=== PATIENT | female | born 2000 | race Caucasian/White ===

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

== ENCOUNTER 2022-01-10 12:21 | Emergency (ER) | payer OTHER, SELFPAY ==
[2022-01-10 12:39] VITALS: BP 108/63; PULSE 96; RESP 16; TEMP 37.3; O2SAT 99
--- NOTE | 2022-01-10 13:21 | ED.URI ---
HPI - URI/Sore Throat General Chief Complaint: Upper Respiratory Infection Stated Complaint: cough/fever Time Seen by Provider: 01/10/22 13:21 Source: patient and RN notes reviewed Mode of arrival: ambulatory Limitations: no limitations History of Present Illness HPI Narrative: 21 y/o female (14 weeks ) presented for c/o fever, headache, nausea for 2 days. Temp up to 102. Patient states she has been taking ibuprofen which was approved by obgyn. Denies cough, shortness of breath, wheezing. Occasional nausea vomiting but reports likely related to morning sickness. MD elicited complaint: cough Related Data Home Medications Medication Instructions Recorded Confirmed No Home Medications 01/10/22 01/10/22 Allergies Allergy/AdvReac Type Severity Reaction Status Date / Time No Known Allergies Allergy Verified 01/10/22 13:07 Review of Systems Review of Systems: ROS per HPI [facility] Past Medical History Medical History Patient denies medical problems Surgical History Surgical History No pertinent past surgical history Social History Social History Gender identity (if verbalized by the patient): Female Exam Narrative: GENERAL: Ill-appearing, nontoxic EYES: PERRLA, conjunctivae clear ENT: Mucous membranes moist. TMs pearly beverly with dull light reflex bilaterally; no tragal tenderness. Oropharynx erythematous without lesions or exudate, no drooling, no hoarseness, no trismus, uvula midline. CHEST: Clear to auscultation, breath sounds equal. No wheezing, rhonchi, rales, or stridor. No respiratory distress, speaks in full sentences. HEART: Regular rate and rhythm. SKIN: Warm, dry, no rash. NEURO: Alert and oriented x3. PSYCH: Normal mood and affect Course Course Emergency Course: Patient is aware of diagnosis, understands and agrees to treatment plan. Anticipatory guidance given. Patient agrees to follow-up as directed and is aware of reasons to seek care at the emergency department. Portions of this record may have been created with voice recognition software Level of Care: Express Care Visit Vital Signs Vital signs: Vital Signs Temperature 99.2 F 01/10/22 12:39 Pulse Rate 96 01/10/22 12:39 Respiratory Rate 16 01/10/22 12:39 Blood Pressure 108/63 01/10/22 12:39 Pulse Oximetry 99 01/10/22 12:39 Oxygen Delivery Room Air 01/10/22 12:39 Temperature 99.2 F 01/10/22 12:39 Pulse Rate 96 01/10/22 12:39 Respiratory Rate 16 01/10/22 12:39 Blood Pressure 108/63 01/10/22 12:39 Pulse Oximetry 99 01/10/22 12:39 Oxygen Delivery Room Air 01/10/22 12:39 reviewed MDM - URI/Sore Throat MDM Narrative Medical decision making narrative: Influenza positive. Results reviewed with patient. Advised supportive measures and signs/symptoms to go to the ER. Pt is appropriate for outpt treatment and f/u. Differential Diagnosis Differential diagnosis: Likely upper respiratory infection, sinusitis, viral infection and influenza Lab Data Labs: Influenza A Screen Positive Reference Range: Negative Influenza B Screen Negative Reference Range: Negative Discharge Plan Discharge Clinical Impression: Influenza Patient Disposition: Home, Self-Care Condition: Stable Instructions: Influenza (ED) Additional Instructions: Influenza positive You should avoid crowds until you are fever free for 24 hours without the use of fever reducing medications, or the symptoms are improved Rest. Drink plenty of fluids. Tylenol every 8 hours as needed for pain/fever Discuss other symptom treatment options with Obgyn. Follow up with your primary care provider as needed in 1-2 brenda
== END 2022-01-10 13:35 | disposition home or self-care (01) ==
PROVIDERS: Emergency Provider Nurse Practitioner Family
DX: J11.1 Influenza due to unidentified influenza virus with other respiratory manifestations (principal)
CPT/HCPCS: 87804; 99213; G0463

== ENCOUNTER 2022-03-17 11:54 | Outpatient (CLI) | payer OTHER, SELFPAY ==
--- NOTE | ~2022-03-17 | XR_ITS ---
Clinical Indication: Chest pain PA and lateral views of the chest: Comparison: None Findings: The lungs are clear, without evidence of focal consolidation or pleural effusion. Cardiome diastinal silhouette is within normal limits. Bones and soft tissues are unremarkable. Impression: Normal chest. Reviewed, dictated and finalized at location . [employer]IC SHOVEL OPERATOR Impression: Normal chest.
== END 2022-03-17 11:55 | disposition home or self-care (01) ==
LOC: ANHIMG 12:00
DX: R07.9 Chest pain, unspecified (principal)
CPT/HCPCS: 71046

== ENCOUNTER 2022-04-03 09:49 | Observation (INO) | payer OTHER, SELFPAY ==
[2022-04-03 09:41] VITALS: BP 120/75; PULSE 107; RESP 16; TEMP 36.7; O2SAT 100
--- NOTE | 2022-04-03 10:00 | PC.NURSE ---
Pt states she has had dizziness for past 2 weeks. States white spots and black spots in eyes past week and this morning became nauseated at work. States she knelt down to vomit an passed out States whens she woke she was sitting with head against wall. Unsure how long she was there. Denies pain denies falling abdomen that she is aware of and was not on abdomen when she woke up States mild right side headache frontal area. Rates as 6 states not intense enough for pain medication.
--- NOTE | 2022-04-03 11:00 | PC.NURSE ---
Dr. Stein in OR. Coming to dept after case. WIll report on pt. then.
--- NOTE | 2022-04-03 11:38 | PC.NURSE ---
Dr. Stein in dept. Report given. Orders received.
[2022-04-03 12:34] LABS: Bacteria Urine Trace /hpf; RBC Urine 0-2 /hpf (0-2); Squamous Epithelial Cell Urine Rare /hpf (Few); WBC Urine 0-3 /hpf
[2022-04-03 12:35] LABS: Appearance Urine Clear (Clear); Bilirubin Urine Negative (Negative); Blood Urine Negative (Negative); Color Urine Yellow (Yellow); Glucose Urine UA Negative (Negative); Ketones Urine Negative (Negative); Leukocyte Esterase Ur Trace LEU/UL (Negative); Nitrate Urine Negative (Negative); Protein Urine Negative (Negative); Urobilinogen Urine 0.2 mg/dL (<2.0)
[2022-04-03 13:41] LABS: Add Urine Microscopic? YES
--- NOTE | 2022-04-05 07:29 | PM.OBTRLD ---
OB - Triage/Final Diagnosis Visit Information Comments/Additional reasons for admission: I have assessed the risk for this patient, Jessica Denis Tinsley, and determined that she would benefit from observation care. Evaluation Laboratory results: Laboratory Tests 04/03/22 11:54 Urine Color Yellow Urine Appearance Clear Urine pH 7.0 Ur Specific [place] 1.010 Urine Protein Negative Urine Glucose (UA) Negative Urine Ketones Negative Ur Blood (Man) Negative Urine Nitrate Negative Urine Bilirubin Negative Urine Urobilinogen 0.2 Leukocyte Esterase Rfl Trace H Urine RBC 0-2 Urine WBC 0-3 Ur Squamous Epith Cells Rare Urine Bacteria Trace Final Diagnosis (1) Dizziness: Code(s): R42 - Dizziness and giddiness Status: Acute
== END 2022-04-03 12:51 | disposition home or self-care (01) ==
PROVIDERS: Admitting Provider Obstetrics & Gynecology; Visit Provider Obstetrics & Gynecology
DX: O26.899 Other specified pregnancy related conditions, unspecified trimester (principal); R42 Dizziness and giddiness; Z3A.25 25 weeks gestation of pregnancy
CPT/HCPCS: 81001; G0378; G0379

== ENCOUNTER 2022-04-04 13:35 | Emergency (ER) | payer OTHER, SELFPAY ==
[2022-04-04 13:56] VITALS: BP 106/71; PULSE 98; RESP 18; TEMP 36.6; O2SAT 100
[2022-04-04 16:31] VITALS: BP 110/76; PULSE 106; RESP 16; TEMP 36.9; O2SAT 100
[2022-04-04] MEDS: SODIUM CHLORIDE 0.9% IV 1,000 ML 999 ML IV CONT (17:24)
--- NOTE | 2022-04-04 18:22 | ED.HA ---
HPI - Headache General Chief Complaint: Headache Stated Complaint: headache, 26 weeks gestation Time Seen by Provider: 04/04/22 16:33 History of Present Illness HPI Narrative: Patient is a 21-year-old female who presents ER with headache. Patient reports she had a syncopal episode yesterday and was evaluated by OB. She said she struck her head on the wall when she fell. She has developed generalized throbbing headache that is like a band since yesterday. Yesterday she had right-sided throbbing headache. Reports mild photophobia. Reports she sees dots that will float across her vision at times. No blurred vision. No blood thinners. Was told to come here by her hatch supervisor for concussion check. Patient has taken ibuprofen for her pain. Related Data Home Medications Medication Instructions Recorded Confirmed [id number] 3-fat com #1 27 1 cap PO DAILY 04/04/22 04/04/22 mg-1 mg-300 mg capsule Allergies Allergy/AdvReac Type Severity Reaction Status Date / Time No Known Allergies Allergy Verified 04/04/22 16:37 Review of Systems Eyes: Eyes: Reports change in vision (Floaters) and Reports photophobia Gastrointestinal: Gastrointestinal: Denies abdominal pain, Denies nausea and Denies vomiting Genitourinary: Genitourinary: Denies abnormal vaginal bleeding and Denies pelvic pain Integumentary/Breasts: Skin/Breast: Denies erythema and Denies rash Neurologic: Reports syncope, Reports headache(s), Denies focal weakness and Denies numbness PMFSH Past Medical History Medical History Patient denies medical problems Surgical History Surgical History No pertinent past surgical history Social History Social History Gender identity (if verbalized by the patient): Female Exam Narrative: GENERAL: Well-appearing, well-nourished, and in no acute distress. HEAD: Normocephalic, atraumatic. EYES: PERRL and EOMI. intraocular pressure 12 mmHg in the right eye and unable to perform in the left eye due to patient not being able to tolerate the test due to blinking. Visual acuity is 20/20 with both eyes with correction. ENT: Mucous membranes moist. CHEST: Clear to auscultation. No respiratory distress. HEART: Regular rate and rhythm. Normal peripheral pulses. EXTREMITIES: Normal range of motion. No edema. NEURO: Alert and oriented x3. PSYCH: Normal mood and affect. Course Course Emergency Course: Patient resting comfortably. Has been hydrated. Received IV Tylenol. Headache improving. Normal visual acuities with correction. Recommend follow-up with her hatch supervisor. Also encourage patient to see an eye doctor for her floaters. Vital Signs Vital signs: Vital Signs Temperature 97.9 F 04/04/22 13:56 Pulse Rate 98 04/04/22 13:56 Respiratory Rate 18 04/04/22 13:56 Blood Pressure 106/71 04/04/22 13:56 Pulse Oximetry 100 04/04/22 13:56 Oxygen Delivery Room Air 04/04/22 13:56 Temperature 98.4 F 04/04/22 16:31 Pulse Rate 106 H 04/04/22 16:31 Respiratory Rate 16 04/04/22 16:31 Blood Pressure 110/76 04/04/22 16:31 Pulse Oximetry 100 04/04/22 16:31 Oxygen Delivery Room Air 04/04/22 16:31 Discharge Plan Discharge Clinical Impression: Concussion Patient Disposition: Home, Self-Care Condition: Stable Instructions: Concussion (ED) Additional Instructions: Return to the ER if you lose consciousness, you have a seizure, you have new focal numbness or weakness in arm or leg, you have additional concerns. Take Tylenol as needed for headache. Plan a dark room that is quiet to help with healing. Prescriptions: No Action Pre-Camille Multivitamins/Minerals 27-1-300 mg Capsule 1 cap PO DAILY Follow-up/Referrals: UNKNOWN,DOCTOR [Primary Care Provider] - Stand Alone Forms: Work/
[2022-04-04 18:54] VITALS: BP 103/68; PULSE 100; RESP 18; TEMP 36.8; O2SAT 100
== END 2022-04-04 18:54 | disposition home or self-care (01) ==
PROVIDERS: Emergency Provider Emergency Medicine
DX: O9A.212 Injury, poisoning and certain other consequences of external causes complicating pregnancy, second trimester (principal); S06.0XAA Concussion with loss of consciousness status unknown, initial encounter; Z3A.26 26 weeks gestation of pregnancy; W01.198A Fall on same level from slipping, tripping and stumbling with subsequent striking against other object, initial encounter
CPT/HCPCS: 96361; 96374; 99284; J0131; J7030

== ENCOUNTER 2022-04-27 16:03 | Outpatient (RCR) | payer OTHER, SELFPAY ==
[2022-04-27 16:49] LABS: Hematocrit 33.2 % (37.0-47.0); Hemoglobin 11.1 g/dL (12.0-15.0)
[2022-04-27 17:43] LABS: HIV 1/2 Ab P24 Ag Result Negative (Negative)
== END 2022-07-26 23:59 | disposition home or self-care (01) ==
LOC: ANHLAB 16:03
PROVIDERS: Visit Provider Advanced Practice Midwife
DX: Z11.4 Encounter for screening for human immunodeficiency virus [HIV] (principal); O36.0190 Maternal care for anti-D [Rh] antibodies, unspecified trimester, not applicable or unspecified; Z3A.00 Weeks of gestation of pregnancy not specified
CPT/HCPCS: 36415; 85014; 85018; 85461; 86703; 86850; 86900; 86901; G0432

== ENCOUNTER 2022-05-01 17:16 | Outpatient (RCR) | payer OTHER, SELFPAY ==
[2022-05-01 17:51] LABS: Hematocrit 33.2 % (37.0-47.0); Hemoglobin 10.9 g/dL (12.0-15.0)
[2022-05-01 18:40] LABS: HIV 1/2 Ab P24 Ag Result Negative (Negative)
[2022-05-02] MEDS: RHO(D) IMMUNE GLOBULIN 300 MCG/2 ML SYRINGE IM (12:51)
== END 2022-07-30 23:59 | disposition home or self-care (01) ==
LOC: ANHLAB 17:16
PROVIDERS: Visit Provider Advanced Practice Midwife
DX: Z11.4 Encounter for screening for human immunodeficiency virus [HIV] (principal); Z29.13 Encounter for prophylactic Rho(D) immune globulin; O36.0130 Maternal care for anti-D [Rh] antibodies, third trimester, not applicable or unspecified; Z3A.00 Weeks of gestation of pregnancy not specified
CPT/HCPCS: 36415; 85014; 85018; 85461; 86703; 86850; 86900; 86901; 90384; 96372; G0432; J2790

== ENCOUNTER 2022-06-15 13:16 | Outpatient (CLI) | payer OTHER, SELFPAY ==
--- NOTE | ~2022-06-15 | US_ITS ---
EXAMINATION: US venous doppler [facility] DATE: 06/15/2022 13:43 INDICATION: Left lower limb edema. TECHNIQUE: Grayscale ultrasound images without and with compression and Doppler ultrasound images of the left lower extremity veins were obtained. COMPARISON: None. FINDINGS: The visualized portions of left common femoral vein, profunda (deep) femoral vein, femoral vein, popl iteal vein, peroneal veins, posterior tibial veins, and greater saphenous vein outflow are patent. IMPRESSION: 1. No deep venous thrombosis. Reviewed, dictated and finalized at location A.
== END 2022-06-15 13:17 | disposition home or self-care (01) ==
LOC: ANHIMG 13:18
PROVIDERS: Visit Provider Advanced Practice Midwife
DX: R60.0 Localized edema (principal)
CPT/HCPCS: 93971

== ENCOUNTER 2022-06-29 14:02 | Observation (INO) | payer OTHER, SELFPAY ==
[2022-06-29] VITALS (7 sets, daily range): BP systolic 106–117; BP diastolic 66–83; PULSE 72–87; BMI 29.2
[2022-06-29] MEDS: ONDANSETRON INJ 4 MG/2 ML VIAL IV PUSH (14:59)
[2022-06-29] MEDS: DEXTROSE 5%/LACTATED RINGERS 1,000 ML 999 ML IV CONT (15:00)
[2022-06-29 15:01] LABS: Basophils Percent Auto 0.7 % (0.2-1.2); Eosinophils Percent Auto 0.7 % (0-4.4); Hematocrit 32.1 % (37.0-47.0); Hemoglobin 10.5 g/dL (12.0-15.0); Immature Granulocyte Absolute 0.04 K/mm3 (0.00-0.031); Immature Granulocyte Percent A 0.7 % (0-0.5); Lymphocytes Absolute Auto 1.41 K/mm3 (0.9-3.2); Mean Corpuscular HGB Conc 32.7 g/dl (32-36); Mean Corpuscular Hemoglobin 27.4 pg (26-34); Mean Corpuscular Volume 83.8 fl (80-100); Mean Platelet Volume 10.6 fl (7.4-10.4); Monocytes Absolute Auto 0.8 K/mm3 (0.1-0.6); Monocytes Percent Auto 12.2 % (2.6-8.5); Neutrophils Absolute Auto 3.9 K/mm3 (1.3-6.7); Neutrophils Percent Auto 62.7 % (45.5-73.1); Platelet Count Result 213 k/mm3 (150-375); Red Blood Count 3.83 M/mm3 (4.2-5.4); Red Cell Distribution Width 15.7 % (11.5-14.5); White Blood Count 6.1 K/mm3 (4.5-10.0)
[2022-06-29 15:11] LABS: Alanine Aminotransferase 19 U/L (6-35); Albumin Level 3.5 g/dL (3.7-5.6); Alkaline Phosphatase 108 U/L (45-116); Anion Gap 5 mmol/L (8-16); Aspartate Amino Transferase 25 U/L (14-36); Bilirubin,Total 0.3 mg/dL (0.2-1.3); Blood Urea Nitrogen 7 mg/dL (8-21); Calcium 8.6 mg/dL (8.9-10.7); Carbon Dioxide 23 mmol/L (22-30); Chloride 107 mmol/L (98-107); Estimated Glomerular Filt Rate > 60; Glucose 80 mg/dL (65-110); Potassium 3.9 mmol/L (3.4-5.0); Sodium 135 mmol/L (134-143)
--- NOTE | 2022-06-29 15:47 | LDADM ---
This patient, Jessica Tinsley, was admitted to Labor/Delivery/Recovery 106 on 06/29/22 at 14:02. Plans for labor, pain management and were discussed with patient. Patient/family oriented to hospital policies and general routines including ID bracelet, bed and alarms, visiting hours, pain management, procedures, bathroom and other care routines, personal items, smoking policy, room service/diet and guest tray routines, infant security routines, and visiting hours. Patient/Family are encouraged to report perceived risks to care and to ask questions if they do not understand what they are told or what they should do. See OBIX for further documentation.
[2022-06-29 15:56] LABS: Appearance Urine Clear (Clear); Bacteria Urine Rare /hpf; Bilirubin Urine Negative (Negative); Blood Urine Negative (Negative); Color Urine Yellow (Yellow); Glucose Urine UA Trace mg/dL (Negative); Ketones Urine Negative (Negative); Leukocyte Esterase Ur Trace LEU/UL (Negative); Nitrate Urine Negative (Negative); Non Pathogenic Casts 0-2; Protein Urine Negative (Negative); RBC Urine 0-2 /hpf (0-2); Specific Grav Ur 1.006 (1.001-1.035); Squamous Epithelial Cell Urine None seen /hpf (Few); Urobilinogen Urine 0.2 mg/dL (<2.0); WBC Urine 0-5 /hpf; pH Urine 6.5 (5.0-9.0)
[2022-06-29 15:57] LABS: Add Urine Microscopic? YES
--- NOTE | 2022-06-29 16:04 | PC.NURSE ---
Spoke with CNM on phone at [phone]. Discussed lab values. Patient is not laurie and is no longer complaining of nausea. Patient has not vomited during this admission. tracing has remained category I. Verbal orders for discharge given.
--- NOTE | 2022-06-30 12:04 | P.PNOB_ITS ---
OB - Triage/Final Diagnosis Visit Information Date of evaluation: 06/29/22 Reason for evaluation: other (nausea) Comments/Additional reasons for admission: I have assessed the risk for this patient, Jessica Denis Tinsley, and determined that she would benefit from observation care. Evaluation Laboratory results: Laboratory Tests 06/29/22 14:55 WBC 6.1 RBC 3.83 L Hgb 10.5 L Hct 32.1 L MCV 83.8 MCH 27.4 MCHC 32.7 RDW 15.7 H Plt Count 213 MPV 10.6 H Immature Gran % (Auto) 0.7 H Neut % (Auto) 62.7 Lymph % (Auto) 23.0 [place] % (Auto) 12.2 H Eos % (Auto) 0.7 Baso % (Auto) 0.7 Lymph # (Auto) 1.41 [place] # (Auto) 0.8 H Eos # (Auto) 0.0 Baso # (Auto) 0.0 Abs Immat Gran (auto) 0.04 H Absolute Neuts (auto) 3.9 Absolute Nucleated RBC 0.0 Nucleated RBC % 0.0 Sodium 135 Potassium 3.9 Chloride 107 Carbon Dioxide 23 Anion Gap 5 L BUN 7 L Creatinine 0.50 L Estim Creat Clear Calc Not Reportable Estimated GFR > 60 Glucose 80 Calcium 8.6 L Total Bilirubin 0.3 AST 25 ALT 19 Alkaline Phosphatase 108 Total Protein 7.0 Albumin 3.5 L Urine Color Yellow Urine Appearance Clear Urine pH 6.5 Ur Specific [place] 1.006 Urine Protein Negative Urine Glucose (UA) Trace H Urine Ketones Negative Ur Blood (Man) Negative Urine Nitrate Negative Urine Bilirubin Negative Urine Urobilinogen 0.2 Leukocyte Esterase Rfl Trace H Urine RBC 0-2 Urine WBC 0-5 Ur Squamous Epith Cells None seen Urine Bacteria Rare Urine Casts 0-2 Vital signs: Vital Signs - 24 hr 06/29/22 14:45 06/29/22 15:00 06/29/22 15:15 Pulse Rate 82 81 73 Blood Pressure 117/66 111/83 111/77 Oxygen Delivery 06/29/22 15:30 06/29/22 15:43 06/29/22 15:45 Pulse Rate 72 80 87 Blood Pressure 106/75 109/80 113/80 Oxygen Delivery 06/29/22 16:00 06/29/22 15:30 Pulse Rate 81 Blood Pressure 112/75 Oxygen Delivery Room Air
== END 2022-06-29 16:20 | disposition home or self-care (01) ==
PROVIDERS: Advanced Practice Midwife; Admitting Provider Obstetrics & Gynecology; Visit Provider Obstetrics & Gynecology
DX: O26.893 Other specified pregnancy related conditions, third trimester (principal); R11.0 Nausea; Z3A.38 38 weeks gestation of pregnancy
CPT/HCPCS: 36415; 80053; 81001; 85025; 96374; G0378; G0379; J2405; J7121

== ENCOUNTER 2022-07-13 16:38 | Inpatient (IN) | payer OTHER, SELFPAY ==
[2022-07-13] VITALS (13 sets, daily range): BP systolic 102–137; BP diastolic 58–99; PULSE 77–94; TEMP 36.3–36.4; BMI 31.1; BMI 30.9
[2022-07-13 17:45] LABS: Basophils Percent Auto 0.6 % (0.2-1.2); Eosinophils Absolute Auto 0.1 K/mm3 (0-0.3); Eosinophils Percent Auto 0.8 % (0-4.4); Hematocrit 31.6 % (37.0-47.0); Hemoglobin 10.5 g/dL (12.0-15.0); Immature Granulocyte Absolute 0.07 K/mm3 (0.00-0.031); Lymphocytes Absolute Auto 1.75 K/mm3 (0.9-3.2); Lymphocytes Percent Auto 24.4 % (18.3-44.2); Mean Corpuscular HGB Conc 33.2 g/dl (32-36); Mean Corpuscular Hemoglobin 27.8 pg (26-34); Mean Corpuscular Volume 83.6 fl (80-100); Mean Platelet Volume 11.7 fl (7.4-10.4); Monocytes Absolute Auto 0.8 K/mm3 (0.1-0.6); Monocytes Percent Auto 11.3 % (2.6-8.5); Neutrophils Absolute Auto 4.4 K/mm3 (1.3-6.7); Neutrophils Percent Auto 61.9 % (45.5-73.1); Platelet Count Result 185 k/mm3 (150-375); Red Blood Count 3.78 M/mm3 (4.2-5.4); Red Cell Distribution Width 15.6 % (11.5-14.5); White Blood Count 7.2 K/mm3 (4.5-10.0)
[2022-07-13 17:51] LABS: Appearance Urine Clear (Clear); Bacteria Urine 1+ /hpf; Bilirubin Urine Negative (Negative); Blood Urine Negative (Negative); Color Urine Yellow (Yellow); Glucose Urine UA Negative (Negative); Ketones Urine Negative (Negative); Leukocyte Esterase Ur Trace LEU/UL (Negative); Nitrate Urine Negative (Negative); Non Pathogenic Casts 0-2; Protein Urine 2+ mg/dL (Negative); RBC Urine 0-2 /hpf (0-2); Specific Grav Ur 1.015 (1.001-1.035); Squamous Epithelial Cell Urine Occasional /hpf (Few); WBC Urine 0-5 /hpf; pH Urine 6.5 (5.0-9.0)
[2022-07-13 17:56] LABS: Alanine Aminotransferase 15 U/L (6-35); Albumin Level 3.3 g/dL (3.7-5.6); Alkaline Phosphatase 128 U/L (45-116); Anion Gap 7 mmol/L (8-16); Aspartate Amino Transferase 26 U/L (14-36); Bilirubin,Total 0.2 mg/dL (0.2-1.3); Blood Urea Nitrogen 12 mg/dL (8-21); Calcium 8.2 mg/dL (8.9-10.7); Carbon Dioxide 21 mmol/L (22-30); Chloride 106 mmol/L (98-107); Estimated CRCL calculation 114 ml/min; Estimated Glomerular Filt Rate > 60; Glucose 98 mg/dL (65-110); Potassium 3.8 mmol/L (3.4-5.0); Sodium 134 mmol/L (134-143); Uric Acid 4.8 mg/dL (3.0-5.9)
[2022-07-13 17:58] LABS: Add Urine Microscopic? YES
[2022-07-13 18:02] LABS: Creatinine Urine 71.9 mg/dL; Total Protein Urine Random 117 mg/dL; Ur Ttl Prot Creatinine Ratio 1.63 mg/mg (0-0.20)
--- NOTE | 2022-07-13 19:05 | LDADM ---
This patient, Jessica Tinsley, was admitted to Labor/Delivery/Recovery 105 on 07/13/22 at 16:38. Plans for labor, pain management and were discussed with patient. Patient/family oriented to hospital policies and general routines including ID bracelet, bed and alarms, visiting hours, pain management, procedures, bathroom and other care routines, personal items, smoking policy, room service/diet and guest tray routines, infant security routines, and visiting hours. Patient/Family are encouraged to report perceived risks to care and to ask questions if they do not understand what they are told or what they should do. See OBIX for further documentation.
[2022-07-13] MEDS: miSOPROStol 25 MCG TABLET BY MOUTH ×2 (19:20→23:41)
[2022-07-14] VITALS (298 sets, daily range): BP systolic 104–220; BP diastolic 51–176; PULSE 53–124; RESP 16–17; TEMP 36.2–37.5; O2SAT 83–100
[2022-07-14] MEDS: LACTATED RINGERS 1,000 ML 999 ML IV CONT ×2 (02:18→09:38)
[2022-07-14] MEDS: ACETAMINOPHEN 500 MG TABLET 1000 MG PO ×2 (03:52→12:59)
[2022-07-14] MEDS: ONDANSETRON INJ 4 MG/2 ML VIAL IV PUSH (05:54)
--- NOTE | 2022-07-14 07:50 | WPDOBADMIT ---
Obstetrics - Admit Note Admission Note: record reviewed. No pertinent additions to the history and/or any subsequent changes in the physical findings that are not consistent with the expected course of the were found. IOL for elevated blood pressures with proteinuria, mild preeclampsia, sve 3/90/-2 AROM moderate amount of clear odorless fluid, anticipate vaginal delivery Additions to the history and/or subsequent changes in the physical findings follow. None.
--- NOTE | 2022-07-14 08:26 | WPDANESEPP ---
Anes - Eval Pre Procedure Procedure: labor epidural Date/Time: 07/14/22 08:26 Surgeon: randolph Preop Diagnosis: pain during labor Pre Op Diagnosis: IOL Patient Data Age: 21 Gender: F Height: 1.52 m Weight: 71.8 kg Last Vital Signs Temp 36.3 C L 07/13/22 23:44 Pulse 84 07/14/22 08:21 BP 135/90 07/14/22 08:21 Pulse Ox 99 07/14/22 05:48 O2 Del Method Room Air 07/13/22 18:57 Allergies Allergy/AdvReac Type Severity Reaction Status Date / Time No Known Allergies Allergy Verified 04/04/22 16:37 Home Medications Medication Instructions Recorded Confirmed Type [id number] 3-fat com #1 27 1 cap PO DAILY 04/04/22 07/13/22 History mg-1 mg-300 mg capsule famotidine 20 mg tablet 20 mg PO BID 06/12/22 07/13/22 History ferrous sulfate 325 mg (65 mg 325 mg PO DAILY 06/12/22 07/13/22 History iron) tablet acetaminophen 325 mg capsule 650 mg PO Q4H PRN Headache 07/13/22 07/13/22 History (Tylenol) levothyroxine 75 mcg tablet 75 mcg PO DAILY 07/13/22 07/13/22 History Laboratory Tests 07/13/22 07/13/22 17:18 19:16 WBC 7.2 K/mm3 (4.5-10.0) RBC 3.78 L M/mm3 (4.2-5.4) Hgb 10.5 L g/dL (12.0-15.0) Hct 31.6 L % (37.0-47.0) MCV 83.6 fl (80-100) MCH 27.8 pg (26-34) MCHC 33.2 g/dl (32-36) RDW 15.6 H % (11.5-14.5) Plt Count 185 k/mm3 (150-375) MPV 11.7 H fl (7.4-10.4) Immature Gran % (Auto) 1.0 H % (0-0.5) Neut % (Auto) 61.9 % (45.5-73.1) Lymph % (Auto) 24.4 % (18.3-44.2) Rich % (Auto) 11.3 H % (2.6-8.5) Eos % (Auto) 0.8 % (0-4.4) Baso % (Auto) 0.6 % (0.2-1.2) Lymph # (Auto) 1.75 K/mm3 (0.9-3.2) Rich # (Auto) 0.8 H K/mm3 (0.1-0.6) Eos # (Auto) 0.1 K/mm3 (0-0.3) Baso # (Auto) 0.0 K/mm3 (0.0-0.1) Abs Immat Gran (auto) 0.07 H K/mm3 (0.00-0.031) Absolute Neuts (auto) 4.4 K/mm3 (1.3-6.7) Absolute Nucleated RBC 0.0 K/mm3 (0.0-0.012) Nucleated RBC % 0.0 % (0.0-0.2) Sodium 134 mmol/L (134-143) Potassium 3.8 mmol/L (3.4-5.0) Chloride 106 mmol/L (98-107) Carbon Dioxide 21 L mmol/L (22-30) Anion Gap 7 L mmol/L (8-16) BUN 12 D mg/dL (8-21) Creatinine 0.60 L mg/dL (0.7-1.0) Estim Creat Clear Calc 114 ml/min Estimated GFR > 60 (59 - ) Glucose 98 mg/dL (65-110) Uric Acid 4.8 mg/dL (3.0-5.9) Calcium 8.2 L mg/dL (8.9-10.7) Total Bilirubin 0.2 mg/dL (0.2-1.3) AST 26 U/L (14-36) ALT 15 U/L (6-35) Alkaline Phosphatase 128 H U/L (45-116) Total Protein 6.0 L g/dL (6.3-8.6) Albumin 3.3 L g/dL (3.7-5.6) Urine Color Yellow (Yellow) Urine Appearance Clear (Clear) Urine pH 6.5 (5.0-9.0) Ur Specific [place] 1.015 (1.001-1.035) Urine Protein 2+ H mg/dL (Negative) Urine Glucose (UA) Negative mg/dL (Negative) Urine Ketones Negative mg/dL (Negative) Ur Blood (Man) Negative (Negative) Urine Nitrate Negative (Negative) Urine Bilirubin Negative (Negative) Urine Urobilinogen 1.0 mg/dL (<2.0) Leukocyte Esterase Rfl Trace H ALAINA/UL (Negative) Urine RBC 0-2 /hpf (0-2) Urine WBC 0-5 /hpf Ur Squamous Epith Cells Occasional /hpf (Few) Urine Bacteria 1+ H /hpf Urine Casts 0-2 U Random Total Protein 117 mg/dL Urine Creatinine 71.9 mg/dL Protein/Creat Ratio 2 1.63 H mg/mg (0-0.20) RPR Pending Blood Type O Negative Antibody Screen Negative Patient hx anesthesia problems: none Family hx anesthesia problems: none Results Review: All pre-operative results and documents have been reviewed as part of the pre-operative evaluation. [facility] Past Medical Hi
[2022-07-14] MEDS: OXYTOCIN 30 UNITS/NS 500 ML 30 UNITS/500 ML BAG 6 UNITS IV CONT (09:43)
[2022-07-14] MEDS: FAMOTIDINE 20 MG/2 ML VIAL IV PUSH (11:52)
[2022-07-14] MEDS: LABETALOL HCL INJ 100 MG/20 ML VIAL 20 MG IV PUSH (17:03)
[2022-07-14] MEDS: LACTATED RINGERS 1,000 ML 75 ML IV CONT (17:38)
[2022-07-14] MEDS: MAGNESIUM SULF 4 GM/WATER100ML 4 GM/100 ML BAG IVPB (19:12)
[2022-07-14] MEDS: OXYTOCIN 10 UNITS/ML VIAL 20 UNITS (19:21)
[2022-07-14] MEDS: miSOPROStol 200 MCG TABLET 800 MCG (19:24)
--- NOTE | 2022-07-14 19:29 | PM.OBPRVD ---
OB - Delivery Note Procedure Delivery date: 07/14/22 Procedure: vaginal delivery Events: Preeclampsia w/o severe features (during labor turned into severe with severe range blood pressures) Induction method: AROM and Per Misoprostol Protocol Delivery monitor: External FHT, External Uterine and Internal Uterine Route of delivery: Laceration Description: Perineal - 2nd Degree Delivery repair: vicryl Specimen: Yes Quantitative Blood Loss (ml): 600 Anesthesia type: Epidural Disposition: Floor Baby Date of : 07/14/22 Time of : 19:10 Weeks of gestation at delivery: 39 Infant gender: Male Weight (pounds): 8 Weight (ounces): 2 presentation: compound (right arm and hand) Placenta delivery description: Spontaneous Cord Vessel Description: 3 Vessels and Clamped/Cut Narrative: baby to nursery for evaluation, mother and baby stable
[2022-07-14] MEDS: MAGNESIUM SULF 20GM/WATER500ML 500 ML 50 MG IV CONT (19:42)
[2022-07-14] MEDS: BENZOCAINE 20% AER SPR (*SP) 56 GM CAN 1 SPRAY TOPICAL (22:02)
[2022-07-14] MEDS: LANOLIN (LANSINOH) 7.5 GM CREAM 1 APPLIC TOPICAL (22:02)
[2022-07-14] MEDS: WITCH HAZEL 40 PADS 1 PAD TOPICAL (22:02)
[2022-07-14] MEDS: IBUPROFEN 600 MG TABLET PO (22:02)
[2022-07-15] VITALS (13 sets, daily range): BP systolic 94–121; BP diastolic 52–78; PULSE 80–99; RESP 16–18; TEMP 36.2–36.8; O2SAT 98–100
[2022-07-15] MEDS: ACETAMINOPHEN 325 MG TABLET 650 MG PO ×2 (04:41→14:30)
[2022-07-15 04:55] LABS: Hematocrit 23.4 % (37.0-47.0); Hemoglobin 7.4 g/dL (12.0-15.0)
--- NOTE | 2022-07-15 06:24 | PM.OBPNVD ---
OB - PN: Subj Subjective Date/time seen: 07/15/22 06:24 s/p vaginal delivery day 1 baby doing well pain well managed denies headache, visual changes, epigastric pain , magnesium sulfate stopped at 12 hours urinary catheter in, I and O appropriate OB - PN: Obj Data Labs 07/15/22 04:42 07/13/22 17:18 Labs: Laboratory Results - last 24 hr 07/15/22 04:42 Hgb 7.4 L D Hct 23.4 L OB - PN A/P Plan day: 1 Plan: routine care Comments: s/p magnesium sulfate continue to monitor BP continue I and O anemia after delivery plan 2 units of blood pt being co-managed with dr. dickson Time Spent With Patient Time: Total time spent is greater than 50% in coordination of care (as documented) at patient's floor/unit and/or counseling patient: Review of Systems Review of Systems: All systems reviewed & are unremarkable except as noted in HPI and below Exam Const: General: cooperative, healthy appearing and comfortable Chest: Chest palpation & inspection: normal inspection of the chest Resp: Effort & Inspection: normal respiratory effort Auscultation: clear to auscultation bilaterally Cardio: Rate: regular rate Rhythm: regular rhythm GI: Inspection: normal to inspection : Other: deferred Skin: General skin exam: normal color Neuro: General: oriented to person, oriented to place, oriented to time and patient oriented x3 Extrem: Right lower extremity: normal to inspection Left lower extremity: normal to inspection Psych: Appearance: grossly normal
--- NOTE | 2022-07-15 08:36 | WPDANLDPN2 ---
Anes-Prog Note L&D Date/Time: 07/15/22 08:36 Comfortable throughout: labor and delivery Neuraxial method: epidural Epidural/Spinal procedure site: clean & non-tender Neuro status: Neuro function grossly intact. Cardiovascular status: normal Respiratory status: normal Airway patency: baseline Mental status: baseline Post-Op hydration status: normal Vital Signs: Last Vital Signs Temp 36.2 C L 07/15/22 06:35 Pulse 88 07/15/22 06:35 Resp 16 07/15/22 06:35 BP 109/55 L 07/15/22 06:35 Pulse Ox 99 07/15/22 06:35 O2 Del Method Room Air 07/13/22 18:57 Pain score (VAS): 2/10 I/O: Intake & Output 07/14/22 07/15/22 07/15/22 23:59 07:59 15:59 Intake Total 1100 Output Total 823 1300 Balance -823 -200 Post-procedural complaints: none Patient feedback: Patient satisfied with anesthetic care.
[2022-07-15] MEDS: DOCUSATE SODIUM 100 MG CAPSULE PO ×2 (09:12→17:36)
[2022-07-15] MEDS: SODIUM CHLORIDE 0.9% IV 250 ML 30 ML IV CONT (09:12)
[2022-07-15] MEDS: MULTIVIT/MIN/PREN/FOL AC/IRON TABLET 1 TAB PO (09:12)
[2022-07-15] MEDS: POLYSACCHARIDE IRON COMPLEX 150 MG CAPSULE PO ×2 (09:12→17:36)
[2022-07-15] MEDS: IBUPROFEN 600 MG TABLET PO (09:15)
--- NOTE | 2022-07-15 14:20 | PC.NURSE ---
RN advised Cashier Assistant, Salazar, that the patient has an order of protection against the father of her new born baby, both of which have attorneys and per patient she was advised by the attorneys to allow a visit at the hospital as long as there was a 3rd constitution party present. Per the Cashier Assistant, if the patient is comfortable with the visit and in agreement with her and his attorneys then the visit may occur but to let the patient know if she feels threatened at any time that we must call 911 for assistance.
[2022-07-15] MEDS: RHO(D) IMMUNE GLOBULIN 300 MCG/2 ML SYRINGE IM (19:15)
[2022-07-16] VITALS (7 sets, daily range): BP systolic 110–128; BP diastolic 66–88; PULSE 70–93; RESP 16; TEMP 36.3–36.7; O2SAT 99–100
[2022-07-16] MEDS: IBUPROFEN 600 MG TABLET PO ×2 (00:41→09:03)
--- NOTE | 2022-07-16 04:38 | PC.NURSE ---
07/16/2022 at 310 Patient viewed the discharge video Mother & Baby Care, The First Two Weeks . Patient was given the opportunity and encouraged to ask questions. Patient verbalized understanding of information shared and has been given the mother/baby guide for home reference.
[2022-07-16 05:36] LABS: Hematocrit 28.6 % (37.0-47.0); Hemoglobin 9.3 g/dL (12.0-15.0)
[2022-07-16] MEDS: MULTIVIT/MIN/PREN/FOL AC/IRON TABLET 1 TAB PO (09:03)
[2022-07-16] MEDS: DOCUSATE SODIUM 100 MG CAPSULE PO ×2 (09:03→16:49)
--- NOTE | 2022-07-16 09:42 | P.PNOB_ITS ---
OB - PN: Subj Subjective Date/time seen: 07/16/22 09:42 Patient comments: no complaints, pain well controlled, incisional pain, tolerating diet and flatus present OB - PN: Obj Data Labs 07/16/22 05:26 07/13/22 17:18 Labs: Laboratory Results - last 24 hr 07/15/22 07/16/22 04:42 05:26 Hgb 9.3 L Hct 28.6 L Blood Type O Negative Antibody Screen Negative Screen Negative Baby's Blood Type O pos Baby's ORLY Negative Doses of RhIg Required 1 Crossmatch See Detail OB - PN A/P Plan day: 1 Plan: routine care Comments: No problems, routine care , wanted discharge today, had blood and magnesium sulf ate for elevated blood pressures, will continue to observe. Time Spent With Patient Time: Total time spent is greater than 50% in coordination of care (as documented) at patient's floor/unit and/or counseling patient: Exam Const: General: comfortable, no acute distress and alert Resp: Effort & Inspection: normal respiratory effort Auscultation: no crackles, no rales and no rhonchi Cardio: Rate: regular rate Heart sounds: no click, no murmurs and no rubs GI: Inspection: non-distended GI Palp: No Tenderness to palpation present (GI) Auscultation: normal bowel sounds Other: Incision - CDI Extrem: General: normal to inspection, no pedal edema and no calf tenderness
[2022-07-16] MEDS: POLYSACCHARIDE IRON COMPLEX 150 MG CAPSULE PO ×2 (12:39→16:49)
--- NOTE | 2022-07-16 12:46 | PC.NURSE ---
Patient given Medela breast pump. Order sheet completed and facesheet printed and put in office.
--- NOTE | 2022-07-16 16:40 | PC.NURSE ---
Per patient, she would like to no longer put baby to the breast for feeding. She would like to use a breast pump and bottle feed baby pumped breast milk and formula. Pumping guidelines, including milk collection, milk storage and usage discussed.
[2022-07-16] MEDS: ACETAMINOPHEN 325 MG TABLET 650 MG PO (22:12)
[2022-07-17 05:15] VITALS: BP 100/70; PULSE 72; RESP 16; TEMP 36.5
[2022-07-17 07:07] VITALS: BP 121/84; PULSE 88; RESP 16; TEMP 36.7; O2SAT 100
[2022-07-17] MEDS: DOCUSATE SODIUM 100 MG CAPSULE PO (07:17)
[2022-07-17] MEDS: MULTIVIT/MIN/PREN/FOL AC/IRON TABLET 1 TAB PO (07:17)
--- NOTE | 2022-07-17 07:37 | PM.OBPNVD ---
OB - PN: Subj Subjective Date/time seen: 07/17/22 07:37 s/p vaginal delivery day 3 OB - PN: Obj Data Labs 07/16/22 05:26 07/13/22 17:18 OB - PN A/P Plan day: 3 Plan: routine care and discharge home Time Spent With Patient Time: Total time spent is greater than 50% in coordination of care (as documented) at patient's floor/unit and/or counseling patient: Review of Systems Review of Systems: All systems reviewed & are unremarkable except as noted in HPI and below Exam Const: General: cooperative Chest: Chest palpation & inspection: normal inspection of the chest Resp: Effort & Inspection: normal respiratory effort Cardio: Rate: regular rate Rhythm: regular rhythm Skin: General skin exam: normal color Extrem: Right lower extremity: normal to inspection Left lower extremity: normal to inspection Psych: Appearance: grossly normal
--- NOTE | 2022-07-17 07:41 | PM.OBDSVD ---
DS: Admitting Diagnosis Discharge Date 07/17/22 Admitting Diagnosis iol, preeclampsia DS: Discharge Diagnosis Discharge Diagnosis (1) Vaginal delivery: Code(s): O80 - Encounter for full-term uncomplicated delivery Status: Acute OB - DS: Summary OB Procedures : None OB Procedures Intrapartum: Spontaneous Vag Delivery OB Procedures: : None Time Spent with Patient Time attestation: Total time spent providing and/or coordinating discharge services: DS: Data Data Completed and Pending Pending studies at discharge: Pending at discharge 07/14/22 19:12 Surgical [PTH] Routine Discharge Plan Discharge Attending physician on discharge: Claudia Martino Discharging Clinician: Aida Kwok Patient Disposition: Home, Self-Care Activity: pelvic rest Diet: regular Patient Instructions: Antibiotic Form Stand Alone Forms: General Discharge Information Follow-up/Referrals: Claudia Martino MD [Physician] - 1 Week Discharge Medications: New ibuprofen 600 mg Tablet 600 mg PO Q6H PRN (Reason: Cramping) Qty: 30 0RF Continued levothyroxine 75 mcg tablet 75 mcg PO DAILY BLV-qbrh-EQ-omega 3-fat com #1 27-1-300 mg Capsule 1 cap PO DAILY ferrous sulfate 325 mg (65 mg iron) Tablet 325 mg PO DAILY Discontinued acetaminophen [Tylenol] 325 mg Capsule 650 mg PO Q4H PRN (Reason: Headache) famotidine 20 mg Tablet 20 mg PO BID Date of admission: 07/13/22 16:38 Primary Care Provider: Marielena Dennison Admitting Provider: Claudia Martino Attending physician on admission: Aida Kwok Condition: Stable
[2022-07-17] MEDS: POLYSACCHARIDE IRON COMPLEX 150 MG CAPSULE PO (11:14)
[2022-07-17 13:14] LABS: Rapid Plasma Reagin Non-Reactive (NonReactive)
[2022-07-18 11:16] VITALS: BP 121/84; PULSE 80; RESP 18; TEMP 36.6; O2SAT 100
== END 2022-07-17 11:35 | disposition home or self-care (01) | DRG 807 ==
LOC: ANHOBOP 16:44 → ANHOBPP 16:44 → ANHOBOP 18:46 → ANHLDR 18:53 → ANHOB2 07-17 07:40 → ANHLDR 07-18 10:20 → ANHOB2 07-18 10:20
PROVIDERS: Advanced Practice Midwife; Admitting Provider Obstetrics & Gynecology; Visit Provider Obstetrics & Gynecology
DX: O13.4 Gestational [pregnancy-induced] hypertension without significant proteinuria, complicating childbirth (principal); Z37.0 Single live birth; O32.6XX0 Maternal care for compound presentation, not applicable or unspecified; O70.1 Second degree perineal laceration during delivery; O14.14 Severe pre-eclampsia complicating childbirth; O99.02 Anemia complicating childbirth; O77.0 Labor and delivery complicated by meconium in amniotic fluid; Z3A.39 39 weeks gestation of pregnancy
CPT/HCPCS: 36415; 36430; 80053; 81001; 82570; 84156; 84550; 85014; 85018; 85025; 85461; 86592; 86850; 86900; 86901; 86923; 88307; 90384; A9270; J2405; J2590; J2790; J2795; J3475; J7050; J7120; P9016

== ENCOUNTER 2022-08-09 12:55 | Emergency (ER) | payer OTHER, SELFPAY ==
[2022-08-09] VITALS (8 sets, daily range): BP systolic 107–121; BP diastolic 76–88; PULSE 80–95; RESP 12–18; TEMP 36.3; O2SAT 98–100
--- NOTE | ~2022-08-09 | US_ITS ---
EXAMINATION: US pelvic complete DATE: 08/09/2022 14:36 INDICATION: Bleeding 23 days TECHNIQUE: Multiple transabdominal and endovaginal sonographic images of the pelvis were obtained. COMPARISON: None. FINDINGS: The uterus measures 8.6 x 5.3 cm. The endometrial complex measures 12 mm. The right ovary m easures 3.9 x 2.2 cm. The left ovary measures 3.6 x 2.5 cm. There is normal vascular flow in the ovar ies. There is no free fluid in the pelvis. IMPRESSION: 1. No sonographic correlate for the patient's symptoms. Reviewed, dictated and finalized at location []
--- NOTE | 2022-08-09 13:15 | ED.HA ---
HPI - Headache General Chief Complaint: Headache Stated Complaint: headache Time Seen by Provider: 08/09/22 13:03 History of Present Illness HPI Narrative: Patient is a 21-year-old female who is 23 days here for evaluation of headache times several days. Patient states it is described as a tension sensation across her frontal forehead. She was taking ibuprofen with good relief of her symptoms. Patient started to have some vaginal bleeding today with golf ball sized blood clots. She denies any abdominal pain. Related Data Home Medications Medication Instructions Recorded Confirmed RJG-mysy-VT-omega 3-fat com #1 27 1 cap PO DAILY 04/04/22 07/13/22 mg-1 mg-300 mg capsule ferrous sulfate 325 mg (65 mg 325 mg PO DAILY 06/12/22 07/13/22 iron) tablet levothyroxine 75 mcg tablet 75 mcg PO DAILY 07/13/22 07/13/22 Allergies Allergy/AdvReac Type Severity Reaction Status Date / Time No Known Allergies Allergy Verified 04/04/22 16:37 Review of Systems Review of Systems: Gen: Denies fevers or chills Eyes: Denies eye pain or visual change ENT: Denies congestion Respiratory: Denies shortness of breath or cough CV: Denies chest pain or palpitations GI: Denies abdominal pain nausea, emesis or diarrhea : Reports vaginal bleeding. Denies burning, urgency, frequency or hematuria Musculoskeletal: Denies back pain or muscle pain Neuro: Reports headache. Denies numbness, tingling, weakness or focal weakness Skin: Denies rash Except as documented, all other systems reviewed and negative [facility] Past Medical History Medical History Patient denies medical problems Surgical History Surgical History No pertinent past surgical history Family History Family History Other Patient denies significant medical history Social History Social History Smoking status: Never smoker Substance use: never Lack of Transportation: No Lack of Food: Never True Current Housing: I Do Not Have Housing Concerned About Future Housing: No Difficulty Paying Gas/Electric Bills: No Difficulty Paying for Meds: No Currently Unemployed: No Education: High School Diploma/GED Difficulty w/ Childcare or Family Care: No Gender identity (if verbalized by the patient): Female Spiritual care concerns: No Exam Narrative: APPEARANCE: Well appearing, no pain in distress, well-nourished. Head: Normocephalic and atraumatic. EYES: PERRLA/EOMI, conjunctivae clear NOSE: No nasal drainage EARS: External ear normal in appearance THROAT: Oropharynx is clear. Mucous membranes are moist. NECK: Supple. No adenopathy, no masses. RESPIRATORY: Airway patent, respirations nonlabored. Clear to auscultation bilaterally, no rales, rhonchi, wheezing. CARDIOVASCULAR: Regular rate and rhythm without murmurs, rubs, or gallops. : Several small blood clots cleared from the vaginal vault, there is a medium amount of blood and mucus at the cervical os, cleared after use of 2 hernández swabs ABDOMINAL: Normoactive bowel sounds. Soft, nontender, nondistended. No rebound tenderness or guarding. MUSCULOSKELETAL: Extremities are warm and well-perfused. Moves all extremities well. No edema. NEURO: Normal speech. No focal neurologic deficits. SKIN: Skin is warm and dry. No rashes. PSYCHIATRIC: Normal affect/mood.. Course Vital Signs Vital signs: Vital Signs Temperature 97.4 F L 08/09/22 12:57 Pulse Rate 89 08/09/22 12:57 Respiratory Rate 17 08/09/22 12:57 Blood Pressure 121/80 08/09/22 12:57 Pulse Oximetry 99 08/09/22 12:57 Oxygen Delivery Room Air 08/09/22 12:57 Temperature 97.4 F L 08/09/22 12:57 Pulse Rate 88 08/09/22 15:24 Respiratory Rate 16 08/09/22 15:2
[2022-08-09 14:05] LABS: Basophils Absolute Auto 0.1 K/mm3 (0.0-0.1); Basophils Percent Auto 0.8 % (0.2-1.2); Eosinophils Absolute Auto 0.3 K/mm3 (0-0.3); Eosinophils Percent Auto 4.7 % (0-4.4); Hemoglobin 11.8 g/dL (12.0-15.0); Immature Granulocyte Absolute 0.07 K/mm3 (0.00-0.031); Immature Granulocyte Percent A 1.1 % (0-0.5); Lymphocytes Absolute Auto 2.18 K/mm3 (0.9-3.2); Mean Corpuscular HGB Conc 32.8 g/dl (32-36); Mean Corpuscular Hemoglobin 27.7 pg (26-34); Mean Corpuscular Volume 84.5 fl (80-100); Mean Platelet Volume 10.2 fl (7.4-10.4); Monocytes Absolute Auto 0.7 K/mm3 (0.1-0.6); Monocytes Percent Auto 10.5 % (2.6-8.5); Neutrophils Percent Auto 47.9 % (45.5-73.1); Platelet Count Result 285 k/mm3 (150-375); Red Blood Count 4.26 M/mm3 (4.2-5.4); White Blood Count 6.2 K/mm3 (4.5-10.0)
[2022-08-09 14:12] LABS: Appearance Urine Cloudy (Clear); Bacteria Urine None Seen /hpf; Bilirubin Urine Negative (Negative); Blood Urine 3+ (Negative); Color Urine Yellow (Yellow); Glucose Urine UA Negative (Negative); Ketones Urine Negative (Negative); Leukocyte Esterase Ur Trace LEU/UL (Negative); Nitrate Urine Negative (Negative); Non Pathogenic Casts 0-2; Protein Urine Negative (Negative); RBC Urine 0-2 /hpf (0-2); Specific Grav Ur 1.005 (1.001-1.035); Squamous Epithelial Cell Urine Occasional /hpf (Few); Urobilinogen Urine 0.2 mg/dL (<2.0); WBC Urine 0-5 /hpf
[2022-08-09 14:14] LABS: Add Urine Microscopic? YES
[2022-08-09 14:23] LABS: Alanine Aminotransferase 21 U/L (6-35); Albumin Level 4.1 g/dL (3.7-5.6); Alkaline Phosphatase 83 U/L (45-116); Anion Gap 7 mmol/L (8-16); Aspartate Amino Transferase 25 U/L (14-36); Bilirubin,Total 0.3 mg/dL (0.2-1.3); Blood Urea Nitrogen 7 mg/dL (8-21); Carbon Dioxide 25 mmol/L (22-30); Chloride 106 mmol/L (98-107); Estimated Glomerular Filt Rate > 60; Glucose 94 mg/dL (65-110); Magnesium 1.8 mg/dL (1.6-2.3); Potassium 3.9 mmol/L (3.4-5.0); Sodium 138 mmol/L (134-143)
[2022-08-09] MEDS: ACETAMINOPHEN 325 MG TABLET 650 MG PO (14:33)
[2022-08-09 14:34] LABS: Beta HCG Quantitative < 2.39 mIU/ML
== END 2022-08-09 15:20 | disposition home or self-care (01) ==
PROVIDERS: Emergency Provider Physician Assistant; PCP Family Medicine
DX: O99.355 Diseases of the nervous system complicating the puerperium (principal); G44.209 Tension-type headache, unspecified, not intractable
CPT/HCPCS: 36415; 76856; 80053; 81001; 81025; 83735; 84702; 85025; 86850; 86880; 86900; 86901; 86902; 99284; A9270

== ENCOUNTER 2022-12-06 16:07 | Emergency (ER) | payer OTHER, SELFPAY ==
[2022-12-06 16:19] VITALS: BP 117/71; PULSE 86; RESP 16; TEMP 36.9; O2SAT 99
--- NOTE | 2022-12-06 16:57 | ED.HA ---
HPI - Headache General Chief Complaint: Headache Stated Complaint: Headache Time Seen by Provider: 12/06/22 16:15 Source: patient Mode of arrival: ambulatory Limitations: no limitations History of Present Illness HPI Narrative: Patient is a 22-year-old female who presents with migraine that will go away. Patient has tried kane-jpf-ruhwonf medication that normally works along with prescription Topamax and taking a nap. Patient called PCP and was told to increase Topamax dose tomorrow. Patient is currently so she is limited on what she can take. Also reports nausea but has not vomited. Denies any changes in vision, unilateral numbness, tingling or weakness. Patient has a neurologist appointment in 1 week. Related Data Home Medications Medication Instructions Recorded Confirmed topiramate 25 mg tablet 25 mg PO DAILY 12/06/22 12/06/22 Allergies Allergy/AdvReac Type Severity Reaction Status Date / Time No Known Allergies Allergy Verified 12/06/22 16:16 Review of Systems Review of Systems: All systems reviewed & are unremarkable except as noted in HPI and below Constitutional: Constitutional: Denies body ache(s), Denies chills, Denies fatigue, Denies fever(s), Reports headache(s), Denies malaise and Denies weakness Eyes: Eyes: Denies blurry vision, Denies irritation and Denies loss of vision ENT: Denies otalgia, Reports headache(s), Denies nasal discharge, Denies sinus pain and Denies sore throat Cardiovascular: Cardiovascular: Denies chest pain, Denies irregular heart rhythm and Denies dyspnea Respiratory: Respiratory: Denies dyspnea Gastrointestinal: Gastrointestinal: Denies abdominal pain, Denies melena, Denies hematochezia, Denies diarrhea, Reports nausea and Denies vomiting Musculoskeletal: Musculoskeletal: Denies back pain, Denies myalgias and Denies arthralgias Integumentary/Breasts: Skin/Breast: Denies pruritus and Denies rash Neurologic: Reports headache(s), Denies loss of vision and Denies weakness Psychiatric: Psychiatric: Reports no additional psychiatric complaints Endocrine: Endocrine: Denies fatigue PMFSH Past Medical History Medical History Patient denies medical problems Surgical History Surgical History No pertinent past surgical history Family History Family History Other Patient denies significant medical history Social History Social History Smoking status: Never smoker Substance use: never Lack of Transportation: No Lack of Food: Never True Current Housing: I Do Not Have Housing Concerned About Future Housing: No Difficulty Paying Gas/Electric Bills: No Difficulty Paying for Meds: No Currently Unemployed: No Education: High School Diploma/GED Difficulty w/ Childcare or Family Care: No Gender identity (if verbalized by the patient): Female Spiritual care concerns: No Comments At time of signature, agree with nursing past medical, surgical, social and family history. There is no relevant family history pertinent to the presenting complaint. Exam Const: General: cooperative, healthy appearing, comfortable, no acute distress and well nourished Nutritional Appearance: well nourished Orientation/consciousness: patient oriented x3 Limitations: no limitations HENMT: Head: normal to inspection, normocephalic and atraumatic Ears: hearing grossly normal bilaterally and external ears normal Face/Nose/Sinus: Normal external nose present, normal facial exam and face symmetric Face and sinus: normal facial exam and face symmetric Mouth: Yes lip normal Eyes: General: appearance normal, both eyes and all related structures Alignment and Position: alignment normal and position normal Periorbital: periorbital findings chencho
== END 2022-12-06 17:17 | disposition home or self-care (01) ==
PROVIDERS: Emergency Provider Nurse Practitioner Family
DX: G43.909 Migraine, unspecified, not intractable, without status migrainosus (principal); Z86.16 Personal history of COVID-19
CPT/HCPCS: 99213; G0463

== ENCOUNTER 2023-01-31 08:59 | Emergency (ER) | payer OTHER, SELFPAY ==
--- NOTE | 2023-01-31 09:01 | ED.URI ---
HPI - URI/Sore Throat General Chief Complaint: Upper Respiratory Infection Stated Complaint: throat pain,ear pain Time Seen by Provider: 01/31/23 09:00 Source: patient Mode of arrival: ambulatory Limitations: no limitations History of Present Illness HPI Narrative: Jessica is a 22-year-old female patient presenting to the clinic today with complaints of sore throat, cough, runny nose, and left ear pain. She reports symptoms have been going on since of last week. She denies any known fever or chills. States she has been exposed to RSV, croup, and influenza. MD elicited complaint: cough, sore throat, nasal congestion and other (Left ear pain) Related Data Allergies Allergy/AdvReac Type Severity Reaction Status Date / Time No Known Allergies Allergy Verified 01/31/23 09:11 Review of Systems Review of Systems: Pertinent positives per HPI. Patient denies any fever, chills, rash, headache, visual changes, dizziness, shortness of breath, chest pain, palpitations, nausea, vomiting, diarrhea, constipation, abdominal pain, or any urinary issues. PMFSH Past Medical History Medical History Patient denies medical problems Surgical History Surgical History No pertinent past surgical history Family History Family History Other Patient denies significant medical history Social History Social History Smoking status: Never smoker Substance use: never Lack of Transportation: No Lack of Food: Never True Current Housing: I Do Not Have Housing Concerned About Future Housing: No Difficulty Paying Gas/Electric Bills: No Difficulty Paying for Meds: No Currently Unemployed: No Education: High School Diploma/GED Difficulty w/ Childcare or Family Care: No Gender identity (if verbalized by the patient): Female Spiritual care concerns: No Comments At the time of my signature, I reviewed and agree with the nursing past medical, surgical, social, and family history. There is no relevant family history pertinent to the patient complaint. Exam Narrative: General: Well-developed, well nourished, in no apparent distress Head: Normocephalic, atraumatic Eyes: Pupils equally round and reactive to light bilaterally, EOM intact, sclera and conjunctive clear, no discharge, lids normal Ears: TMs intact and clear, right ear canal clear, left ear canal impacted with cerumen, lighted curette was used to removal cerumen successfully, no drainage, grossly hearing normal. Nose: Nares patent, clear nasal discharge, no inflammation, no sinus tenderness. Mouth: Oral pharynx red without lesions or masses, good dentition, MMM. Neck: Supple, trachea midline, no enlargement of anterior or posterior cervical nodes, no thyroid masses or goiter palpable. Cardio: Regular rate and rhythm, s1 and s2 normal, no murmur appreciated. Resp: Clear to auscultation bilaterally, no rhonchi, rales, wheezing or rubs Course Course Emergency Course: Portions of this record may have been created with voice recognition software. Level of Care: Express Care Visit Vital Signs Vital signs: Vital signs reviewed Procedures Ear Wax Removal Left Ear: Ear Wax Removal Date: 01/31/23 Ear Wax Removal Time: 09:18 Results: Re-examined: cerumen removed completely TM Examination: TM(s) intact, normal appearance Ear Canal Exam: atraumatic Patient Tolerated Procedure: well and no complications Complications: no problems Technique: ear canal curetted Additional Comments: Verbal consent obtained for ear irrigation. Risk and benefits explained and patient voiced understanding. Lighted ear curette was used to remove cerumen from the left external canal. Cer
[2023-01-31 09:10] VITALS: BP 117/75; PULSE 99; RESP 16; TEMP 36.8; O2SAT 99
== END 2023-01-31 09:35 | disposition home or self-care (01) ==
PROVIDERS: Emergency Provider Nurse Practitioner Family
DX: J02.9 Acute pharyngitis, unspecified (principal); H61.22 Impacted cerumen, left ear; J06.9 Acute upper respiratory infection, unspecified; B34.9 Viral infection, unspecified
CPT/HCPCS: 69210; 87081; 87880; 99213; G0463

== ENCOUNTER 2023-04-17 18:10 | Emergency (ER) | payer OTHER, SELFPAY ==
--- NOTE | ~2023-04-17 | CT_ITS ---
EXAMINATION: CT brain wo con DATE: 04/17/2023 22:21 INDICATION: headache, syncope . TECHNIQUE: Computed tomography (CT) of the head was performed without intravenous contrast. The mA wa s adjusted according to patient size. Iterative reconstruction technique was employed. The dose-lengt h product was 529.67 mGy-cm. COMPARISON: None. FINDINGS: No acute intracranial hemorrhage or extra-axial fluid collection. No hydrocephalus, mass, or herniation. No acute ischemic infarct. Unremarkable dural venous sinus attenuation. No acute osseous abnormality. The aerated spaces are clear. IMPRESSION: No acute intracranial process. Reviewed, dictated and finalized at location K. O BOARD OPERATOR ANNOUNCER
--- NOTE | ~2023-04-17 | CT_ITS ---
EXAMINATION: CTA chest PE protocol DATE: 04/17/2023 22:27 INDICATION: chest pain, syncope TECHNIQUE: Computed tomography angiography (CTA) of the chest was performed with 100 mL Omnipaque-350 intravenous contrast timed to evaluate the pulmonary arteries. Coronal maximum intensity projection 3D-reconstructions were created by the technologist. The dose-length product (DLP) was 171.05 mGy-cm. Automated exposure control and iterative reconstruction technique were employed. COMPARISON: None. FINDINGS: Lung parenchyma and airways: Clear. Pleura: Unremarkable. Thoracic inlet, axillae and chest wall: Unremarkable. Thoracic aorta: No significant dilation. No dissection. Mediastinum: Normal. Heart and pericardium: Normal. Coronary artery calcifications: Absent. Upper abdomen: No significant finding. Bones: No acute osseous finding. Pulmonary arteries: Study quality: Adequate. No pulmonary emboli detected. IMPRESSION: No CT evidence of acute pulmonary embolus. No acute process detected in the chest. Reviewed, dictated and finalized at location K. K PITCHER
[2023-04-17 18:13] VITALS: BP 140/94; PULSE 87; RESP 20; TEMP 36.1; O2SAT 99
--- NOTE | 2023-04-17 18:16 | ECG_ITS ---
Measurements Intervals [place] Rate: 73 P: 51 SD: 177 QRS: 42 QRSD: 89 T: 59 QT: 382 QTc: 421 Interpretive Statements SINUS RHYTHM T WAVE ABNORMALITY IN ANTERIOR LEADS- CONSIDER ISCHEMIA BASELINE ARTIFACT- I, II, AVR, AVL ABNORMAL ECG NO PREVIOUS ECG AVAILABLE FOR COMPARISON Electronically Signed On 04-17-2023 19:46:49 CARDIAC SURGEON by Aashish Washington D.O.
[2023-04-17 21:11] LABS: Basophils Absolute Auto 0.1 K/mm3 (0.0-0.1); Basophils Percent Auto 0.5 % (0.2-1.2); Eosinophils Absolute Auto 0.2 K/mm3 (0-0.3); Eosinophils Percent Auto 1.4 % (0-4.4); Hematocrit 42.3 % (37.0-47.0); Hemoglobin 14.2 g/dL (12.0-15.0); Immature Granulocyte Absolute 0.03 K/mm3 (0.00-0.031); Immature Granulocyte Percent A 0.3 % (0-0.5); Lymphocytes Absolute Auto 3.22 K/mm3 (0.9-3.2); Lymphocytes Percent Auto 29.1 % (18.3-44.2); Mean Corpuscular HGB Conc 33.6 g/dl (32-36); Mean Corpuscular Hemoglobin 28.2 pg (26-34); Mean Corpuscular Volume 84.1 fl (80-100); Mean Platelet Volume 10.4 fl (7.4-10.4); Monocytes Absolute Auto 0.8 K/mm3 (0.1-0.6); Monocytes Percent Auto 6.9 % (2.6-8.5); Neutrophils Absolute Auto 6.8 K/mm3 (1.3-6.7); Neutrophils Percent Auto 61.8 % (45.5-73.1); Platelet Count Result 335 k/mm3 (150-375); Red Blood Count 5.03 M/mm3 (4.2-5.4); White Blood Count 11.1 K/mm3 (4.5-10.0)
[2023-04-17 21:17] LABS: Alanine Aminotransferase 14 U/L (6-35); Albumin Level 4.8 g/dL (3.5-5.1); Alkaline Phosphatase 80 U/L (38-126); Anion Gap 10 mmol/L (8-16); Aspartate Amino Transferase 24 U/L (14-36); Bilirubin,Total 0.7 mg/dL (0.2-1.3); Blood Urea Nitrogen 9 mg/dL (7-17); Calcium 9.3 mg/dL (8.4-10.2); Carbon Dioxide 24 mmol/L (22-30); Chloride 104 mmol/L (98-107); Estimated CRCL calculation 114 ml/min; Estimated Glomerular Filt Rate > 60; Glucose 91 mg/dL (65-110); Potassium 3.7 mmol/L (3.4-5.0); Sodium 138 mmol/L (137-145)
--- NOTE | 2023-04-17 21:55 | ED.SYNCOPE ---
HPI - Syncope General Chief Complaint: Syncope <Bailey Espinoza PA-C - Last Filed: 04/18/23 03:28> Stated Complaint: lightheaded, syncope <ABEL Palacios Last Filed: 04/18/23 03:28> Time Seen by Provider: 04/17/23 21:38 <Bailey Espinoza PA-C - Last Filed: 04/18/23 03:28> History of Present Illness HPI narrative: 22-year-old female presents to the emergency department for 2 syncopal episode that occurred today. Patient states she was at work in around 515, she was sitting at her desk watching a show on her phone. States she was filling out paperwork simultaneously when she woke up with her head on her desk and her show was approximately 3 minutes head. States prior to losing consciousness she felt lightheaded, had tunnel vision and felt nauseous. States around 5:45 p.m., she walked to the RN at her job to get her vitals taken. States she had a blood pressure checked which was 73/42, she then lost consciousness again in front of the nurse. States she had the same prodromal symptoms. When she came to a few minutes later, her blood pressure was 184/103. She denies bowel or bladder incontinence, postictal phase, history of seizures. Patient reports she has had a frontal headache throughout the day. States she normally gets headaches and this is unchanged from her baseline. Patient states while on her way to the emergency department she began developing chest pain in her left anterolateral chest wall beneath her breast. She denies cough, congestion, melena hematochezia, vomiting or diarrhea, abdominal pain, radiating chest pain. States her chest pain is worse with movement. Denies history VTE, lower extremity edema, shortness of breath, fever. LMP 03/21/23. <Bailey Espinoza PA-C - Last Filed: 04/18/23 03:28> Related Data Allergies/Adverse Reactions: Allergies Allergy/AdvReac Type Severity Reaction Status Date / Time No Known Allergies Allergy Verified 01/31/23 09:11 <ABEL Palacios Last Filed: 04/18/23 03:28> Review of Systems Review of Systems: CONSTITUTIONAL: Denies fever, chills, or sweats. EYES: Denies visual changes, redness, or discharge. ENT: Denies rhinorrhea, congestion, sore throat, or otalgia. CARDIOVASCULAR: See HPI RESPIRATORY: Denies cough or dyspnea GASTROINTESTINAL: Denies abdominal pain, nausea, vomiting, or diarrhea. GENITOURINARY: Denies dysuria or hematuria. SKIN: Denies rash or itching. MUSCULOSKELETAL: Denies back pain, joint pain, or myalgia. NEUROLOGIC: See HPI PSYCHIATRIC: Denies anxiety or depression. <Bailey Espinoza PA-C - Last Filed: 04/18/23 03:28> [facility] Past Medical History Medical History: Medical History Patient denies medical problems <Bailey Espinoza PA-C - Last Filed: 04/18/23 03:28> Surgical History Surgical History: Surgical History No pertinent past surgical history <Bailey Espinoza PA-C - Last Filed: 04/18/23 03:28> Family History Family History: Family History Other Patient denies significant medical history <Bailey Espinoza PA-C - Last Filed: 04/18/23 03:28> Social History Social History: Social History Smoking status: Never smoker Substance use: never Lack of Transportation: No Lack of Food: Never True Current Housing: I Do Not Have Housing Concerned About Future Housing: No Difficulty Paying Gas/Electric Bills: No Difficulty Paying for Meds: No Currently Unemployed: No Education: High School Diploma/GED Difficulty w/ Childcare or Family Care: No Gender identity (if verbalized by the patient): Female Spiritual care concerns: No <Bailey Espinoza PA-C - Last Filed: 04/18/23 03:28> Exam Narrative: GENERAL: W
[2023-04-17] MEDS: SODIUM CHLORIDE 0.9% IV 1,000 ML 999 ML IV CONT (22:11)
[2023-04-17 22:31] LABS: Prothrombin Time 13.9 Seconds (11.1-14.7)
[2023-04-17 22:32] LABS: Partial Thromboplastin Time 31.2 SECONDS (22.3-36.8)
[2023-04-17 23:01] LABS: Appearance Urine Clear (Clear); Bacteria Urine None Seen /hpf; Bilirubin Urine Negative (Negative); Blood Urine Negative (Negative); Color Urine Yellow (Yellow); Glucose Urine UA Negative (Negative); Ketones Urine 1+ mg/dL (Negative); Leukocyte Esterase Ur 1+ LEU/UL (Negative); Need Manual Microscopic Reviewed; Nitrate Urine Negative (Negative); Non Pathogenic Casts 0-2; Protein Urine Negative (Negative); RBC Urine 0-2 /hpf (0-2); Specific Grav Ur 1.006 (1.001-1.035); Squamous Epithelial Cell Urine Few /hpf (Few); Urobilinogen Urine 0.2 mg/dL (<2.0); WBC Urine 0-5 /hpf; pH Urine 7.5 (5.0-9.0)
[2023-04-17 23:02] LABS: Add Urine Microscopic? YES
[2023-04-17 23:07] LABS: NT Pro B Type Natriuretic Pept < 20 pg/mL (19.9-100); Troponin I < 0.012 ng/mL (0.000-0.034)
[2023-04-17 23:11] VITALS: BP 108/70; PULSE 91; RESP 14; O2SAT 100
--- NOTE | 2023-04-17 23:21 | PC.NURSE ---
Report given to MASTER Richardson.
[2023-04-17 23:41] VITALS: BP 113/82; PULSE 88
[2023-04-17 23:43] VITALS: BP 129/89; PULSE 88
[2023-04-17 23:45] VITALS: BP 113/79; PULSE 88
--- NOTE | 2023-04-18 01:52 | ECG_ITS ---
Measurements Intervals [place] Rate: 65 P: 47 ND: 178 QRS: 39 QRSD: 97 T: 66 QT: 406 QTc: 424 Interpretive Statements SINUS RHYTHM WITH SINUS ARRHYTHMIA INCOMPLETE RIGHT BUNDLE BRANCH BLOCK T WAVE ABNORMALITY IN ANTERIOR LEADS- CONSIDER ISCHEMIA BASELINE ARTIFACT- I, III, AVR, AVL, AVF, V3-V6 ABNORMAL ECG COMPARED TO ECG 04/17/2023 18:20:21 SINUS ARRHYTHMIA NOW PRESENT Electronically Signed On 04-18-2023 6:35:13 CROCHETER by Aashish Washington D.O.
[2023-04-18 02:03] VITALS: BP 106/72; PULSE 78; RESP 15; O2SAT 100
[2023-04-18 02:47] LABS: Troponin I < 0.012 ng/mL (0.000-0.034)
== END 2023-04-18 03:53 | disposition home or self-care (01) ==
PROVIDERS: Emergency Medicine; Emergency Provider Physician Assistant
DX: R55 Syncope and collapse (principal); R07.89 Other chest pain; R94.31 Abnormal electrocardiogram [ECG] [EKG]; I45.10 Unspecified right bundle-branch block
CPT/HCPCS: 36415; 70450; 71275; 80053; 81001; 81025; 83880; 84484; 85025; 85610; 85730; 93005; 96360; 99284; J7030; Q9967

== ENCOUNTER 2023-06-28 19:55 | Emergency (ER) | payer OTHER, SELFPAY ==
[2023-06-28 20:01] VITALS: BP 132/79; PULSE 77; RESP 16; TEMP 36.4; O2SAT 100
--- NOTE | 2023-06-28 20:05 | ED.SKABFB ---
HPI - Skin/Abscess/Foreign Bdy General Chief complaint: Skin/Abscess/Foreign Body Stated complaint: Rash Time Seen by Provider: 06/28/23 20:05 Source: patient Mode of arrival: ambulatory Limitations: no limitations History of Present Illness HPI narrative: Jessica is a 22-year-old female patient presenting to the clinic today with complaints of a rash on her arm and on her foot. She is concerned that this may be [id number] as her son has been recently diagnosed with [id number]. Denies any fever, lesions in her mouth, or painful sores. States that the rash is raised, bumpy, and itches. No changes in soaps, shampoos, environment, detergents, medications, or foods. Denies any shortness of breath, chest pain, tongue swelling, or difficulty breathing. No drooling. Went to the dentist this morning and they did not see any lesions in her mouth per patient Related Data Home Medications Medication Instructions Recorded Confirmed norethindrone (contraceptive) 0.35 0.35 mg PO DAILY 06/28/23 06/28/23 mg tablet Allergies Allergy/AdvReac Type Severity Reaction Status Date / Time No Known Allergies Allergy Verified 06/28/23 20:03 Review of Systems Review of Systems: Pertinent positives per HPI. Patient denies any fever, chills, headache, visual changes, dizziness, cough, runny nose, sore throat, shortness of breath, chest pain, palpitations, nausea, vomiting, diarrhea, constipation, abdominal pain, or any urinary issues. PMFSH Past Medical History Medical History Patient denies medical problems Surgical History Surgical History No pertinent past surgical history Family History Family History Other Patient denies significant medical history Social History Social History Smoking status: Never smoker Substance use: never Lack of Transportation: No Lack of Food: Never True Current Housing: I Do Not Have Housing Concerned About Future Housing: No Difficulty Paying Gas/Electric Bills: No Difficulty Paying for Meds: No Currently Unemployed: No Education: High School Diploma/GED Difficulty w/ Childcare or Family Care: No Gender identity (if verbalized by the patient): Female Spiritual care concerns: No Comments At the time of my signature, I reviewed and agree with the nursing past medical, surgical, social, and family history. There is no relevant family history pertinent to the patient complaint. Exam Narrative: General: Well-developed, well nourished, in no apparent distress Head: Normocephalic, atraumatic. Cardio: Regular rate and rhythm, s1 and s2 normal, no murmur appreciated. Resp: Clear to auscultation bilaterally, no rhonchi, rales, wheezing or rubs. Integumentary: Drasco, warm, and dry, red, raised, bumpy, itchy rash to the right forearm and to the top of the right foot Course Course Emergency Course: Portions of this record may have been created with voice recognition software. Level of Care: Express Care Visit Vital Signs Vital signs: Vital Signs Temperature 36.4 C 06/28/23 20:01 Pulse Rate 77 06/28/23 20:01 Respiratory Rate 16 06/28/23 20:01 Blood Pressure 132/79 06/28/23 20:01 Pulse Oximetry 100 06/28/23 20:01 Oxygen Delivery Room Air 06/28/23 20:01 Temperature 36.4 C 06/28/23 20:01 Pulse Rate 77 06/28/23 20:01 Respiratory Rate 16 06/28/23 20:01 Blood Pressure 132/79 06/28/23 20:01 Pulse Oximetry 100 06/28/23 20:01 Oxygen Delivery Room Air 06/28/23 20:01 Vital signs reviewed MDM - Skin/Abscess/Foreign Bdy MDM Narrative Medical decision making narrative: At the time of visit patient is resting comfortably on the exam table. Patient appears to be nontoxic. Plan
== END 2023-06-28 20:15 | disposition home or self-care (01) ==
PROVIDERS: Emergency Provider Nurse Practitioner Family
DX: L30.9 Dermatitis, unspecified (principal)
CPT/HCPCS: 99213; G0463

== ENCOUNTER 2023-08-12 14:05 | Emergency (ER) | payer OTHER, SELFPAY ==
--- NOTE | ~2023-08-12 | XR_ITS ---
EXAMINATION: XR knee LT 3V DATE: 08/12/2023 14:31 INDICATION: Left knee pain. TECHNIQUE: 3 views of left knee were obtained. COMPARISON: None. FINDINGS: Bone alignment is normal. No fracture. Joint spaces are normal. No knee joint effusion. IMPRESSION: 1. Normal left knee. Reviewed, dictated and finalized at location E. IMPRESSION: 1. Normal left knee.
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
[2023-08-12 14:17] VITALS: BP 122/75; PULSE 64; RESP 16; TEMP 36.9; O2SAT 99
== END 2023-08-12 14:50 | disposition home or self-care (01) ==
PROVIDERS: Emergency Provider Nurse Practitioner Family
DX: S80.02XA Contusion of left knee, initial encounter (principal); S80.212A Abrasion, left knee, initial encounter; X58.XXXA Exposure to other specified factors, initial encounter; Y93.16 Activity, rowing, canoeing, kayaking, rafting and tubing
CPT/HCPCS: 73562; 99213; G0463

== ENCOUNTER 2023-11-08 17:41 | Emergency (ER) | payer OTHER, SELFPAY ==
[2023-11-08 18:01] VITALS: BP 116/79; PULSE 86; RESP 20; TEMP 37; O2SAT 100
--- NOTE | 2023-11-08 18:09 | ED.HA ---
HPI - Headache General Chief Complaint: Headache Stated Complaint: Headache Time Seen by Provider: 11/08/23 18:13 Source: patient, RN notes reviewed and old records reviewed Mode of arrival: ambulatory Limitations: no limitations History of Present Illness HPI Narrative: 23-year-old female presents to the [facility] requesting a work note. States that she left work yesterday early due to headache. Went home, rested did her normal treatments which helped. Woke up this morning with a worsening headache, called in sick for, slept most of the day, does feel better Patient denies any symptoms currently Related Data Home Medications Medication Instructions Recorded Confirmed No Home Medications 11/08/23 11/08/23 Allergies Allergy/AdvReac Type Severity Reaction Status Date / Time No Known Allergies Allergy Verified 11/08/23 18:07 Review of Systems Review of Systems: All systems reviewed & are unremarkable except as noted in HPI and below Constitutional: Constitutional: Reports as per HPI Eyes: Eyes: Reports no additional eye complaints ENT: Reports system reviewed and no additional complaints, except as documented Cardiovascular: Cardiovascular: Reports no additional cardiovascular complaints, Denies chest pain and Denies dyspnea Respiratory: Respiratory: Reports no additional respiratory complaints, Denies chest congestion, Denies cough and Denies dyspnea Gastrointestinal: Gastrointestinal: Reports no additional gastrointestinal complaints, Denies abdominal pain, Denies nausea and Denies vomiting Musculoskeletal: Musculoskeletal: Reports no additional musculoskeletal complaints Integumentary/Breasts: Skin/Breast: Reports system reviewed and no additional complaints, except as docu Neurologic: Reports system reviewed and no additional complaints, except as documented Psychiatric: Psychiatric: Reports no additional psychiatric complaints Allergic/Immunologic: Allergic/Immunologic: Reports no additional allergic/immunologic complaints [facility] Past Medical History Medical History Patient denies medical problems Surgical History Surgical History No pertinent past surgical history Family History Family History Other Patient denies significant medical history Social History Social History Smoking status: Never smoker Substance use: never Lack of Transportation: No Lack of Food: Never True Current Housing: I Do Not Have Housing Concerned About Future Housing: No Difficulty Paying Gas/Electric Bills: No Difficulty Paying for Meds: No Currently Unemployed: No Education: High School Diploma/GED Difficulty w/ Childcare or Family Care: No Gender identity (if verbalized by the patient): Female Spiritual care concerns: No Comments At the time of my signature, I reviewed and agree with the nursing past medical, surgical, social, and family history. There is no relevant family history pertinent to the patient complaint. Exam Const: General: cooperative, healthy appearing, comfortable, no acute distress, well developed, alert and well nourished Nutritional Appearance: well nourished Orientation/consciousness: patient oriented x3 Limitations: no limitations HENMT: Head: normal to inspection Ears: hearing grossly normal bilaterally and external ears normal Face/Nose/Sinus: Normal external nose present, Normal nares present, Normal nasal mucous membranes and turbinates present, normal facial exam and face symmetric Face and sinus: normal facial exam and face symmetric Throat: posterior oropharynx normal Eyes: General: appearance normal, both eyes and all related structures Alignment and Position: alignment normal Periorbital: periorbital findings normal Pupils: Equal
== END 2023-11-08 18:34 | disposition home or self-care (01) ==
PROVIDERS: Emergency Provider Nurse Practitioner
DX: R51.9 Headache, unspecified (principal); Z20.822 Contact with and (suspected) exposure to COVID-19
CPT/HCPCS: 87635; 87804; 99213; G0463

== ENCOUNTER 2023-12-03 17:42 | Emergency (ER) | payer OTHER, SELFPAY ==
[2023-12-03 18:02] VITALS: BP 145/81; PULSE 69; RESP 18; TEMP 36.8; O2SAT 99
--- NOTE | 2023-12-03 18:59 | ED.EAR ---
HPI - Ear Problem General Chief complaint: Ear Stated complaint: Throat/Ear Pain Left Side Time Seen by Provider: 12/03/23 19:02 Source: patient and RN notes reviewed Mode of arrival: ambulatory Limitations: no limitations History of Present Illness HPI Narrative: 23-year-old female presents with concern for left ear pain and sore throat. She reports symptoms started 1-2 days reports history impacted cerumen. She denies fever, runny nose, stuffy nose, a cough I MD Complaint: ear pain Related Data Allergies Allergy/AdvReac Type Severity Reaction Status Date / Time No Known Allergies Allergy Verified 11/08/23 18:07 Review of Systems Review of Systems: CONSTITUTIONAL: Denies malaise, chills, sweats, or fever. EYES: Denies visual changes, redness, or discharge. ENT: Denies rhinorrhea, congestion, sinus pain. Reports sore throat and left ear pain CARDIOVASCULAR: Denies chest pain, palpitations, or edema. RESPIRATORY: Denies cough. Denies dyspnea. GASTROINTESTINAL: Denies abdominal pain, nausea, vomiting, diarrhea SKIN: Denies rash or itching. MUSCULOSKELETAL: Denies myalgia. NEUROLOGIC: Denies headache. All systems reviewed & are unremarkable except as noted in HPI and below PMFSH Past Medical History Medical History Patient denies medical problems Surgical History Surgical History No pertinent past surgical history Family History Family History Other Patient denies significant medical history Social History Social History Smoking status: Never smoker Substance use: never Lack of Transportation: No Lack of Food: Never True Current Housing: I Do Not Have Housing Concerned About Future Housing: No Difficulty Paying Gas/Electric Bills: No Difficulty Paying for Meds: No Currently Unemployed: No Education: High School Diploma/GED Difficulty w/ Childcare or Family Care: No Gender identity (if verbalized by the patient): Female Spiritual care concerns: No Comments At time of signature, agree with nursing past medical, surgical, social and family history. There is no relevant family history pertinent to the presenting complaint Exam Narrative: GENERAL: Well-appearing, well-nourished, and in no acute distress. HEAD: Normocephalic EYES: PERRLA, conjunctivae clear ENT: Nares clear. Mucous membranes moist. TM pearly beverly with sharp light reflex bilaterally; no tragal tenderness. Oropharynx erythematous without lesions. Tonsils enlarged on the left and without exudate, no drooling, no hoarseness, no trismus, uvula midline. NECK: Supple. No lymphadenopathy CHEST: Clear to auscultation, breath sounds equal. No wheezing, rhonchi, rales, or stridor. No respiratory distress, speaks in full sentences. HEART: Regular rate and rhythm. No murmur heard. SKIN: Warm, dry, no rash. NEURO: Alert and oriented x3. PSYCH: Normal mood and affect Course Course Emergency Course: Patient is aware of diagnosis, understands and agrees to treatment plan. Anticipatory guidance given. Patient agrees to follow-up as directed and is aware of reasons to seek care at the emergency department. Portions of this record may have been created with voice recognition software Level of Care: Express Care Visit Vital Signs Vital signs: Vital Signs Temperature 98.3 F 12/03/23 18:02 Pulse Rate 69 12/03/23 18:02 Respiratory Rate 18 12/03/23 18:02 Blood Pressure 145/81 H 12/03/23 18:02 Pulse Oximetry 99 12/03/23 18:02 Oxygen Delivery Room Air 12/03/23 18:02 Temperature 98.3 F 12/03/23 18:02 Pulse Rate 69 12/03/23 18:02 Respiratory Rate 18 12/03/23 18:02 Blood Pressure 145/81 H 12/03/23 18:02 Pulse Oximetry 99 12/03/23 18:02 Oxygen Delivery Room Air 12/03/23 18
[2023-12-03 19:18] LABS: EDSTREPNEGPOS1 Negative (Negative)
== END 2023-12-03 19:25 | disposition home or self-care (01) ==
PROVIDERS: Emergency Provider Nurse Practitioner
DX: H92.02 Otalgia, left ear (principal)
CPT/HCPCS: 87081; 87880; 99213; G0463

== ENCOUNTER 2024-03-07 09:52 | Emergency (ER) | payer OTHER, SELFPAY ==
--- NOTE | 2024-03-07 10:01 | ED.URI ---
HPI - URI/Sore Throat General Chief Complaint: Nausea/Vomiting/Diarrhea Stated Complaint: work note fatigue sore throat nausea Time Seen by Provider: 03/07/24 09:55 Source: patient Mode of arrival: ambulatory Limitations: no limitations History of Present Illness HPI Narrative: Patient is a 23-year-old female who presents with fatigue, sore throat, congestion for 6 days. Patient states she is only able to be awake for roughly 4 hours a day. Patient not take anything for symptoms. Does not want tested for COVID or flu. States she needs a work note. Related Data Allergies Allergy/AdvReac Type Severity Reaction Status Date / Time No Known Allergies Allergy Verified 11/08/23 18:07 Review of Systems Review of Systems: All systems reviewed & are unremarkable except as noted in HPI and below Constitutional: Constitutional: Denies body ache(s), Denies chills, Reports fatigue, Denies fever(s), Denies headache(s), Denies malaise and Denies weakness Eyes: Eyes: Denies blurry vision, Denies itchy eyes and Denies loss of vision ENT: Denies otalgia, Denies headache(s), Reports nasal congestion, Denies sinus pain and Reports sore throat Cardiovascular: Cardiovascular: Denies chest pain, Denies irregular heart rhythm and Denies dyspnea Respiratory: Respiratory: Denies cough and Denies dyspnea Gastrointestinal: Gastrointestinal: Denies abdominal pain, Denies diarrhea, Denies nausea and Denies vomiting Musculoskeletal: Musculoskeletal: Denies back pain, Denies myalgias and Denies arthralgias Integumentary/Breasts: Skin/Breast: Denies pruritus and Denies rash Neurologic: Denies headache(s), Denies loss of vision and Denies weakness Psychiatric: Psychiatric: Reports no additional psychiatric complaints Endocrine: Endocrine: Denies fatigue Allergic/Immunologic: Allergic/Immunologic: Denies itchy eyes PMFSH Past Medical History Medical History Patient denies medical problems Surgical History Surgical History No pertinent past surgical history Family History Family History Other Patient denies significant medical history Social History Social History Smoking status: Never smoker Substance use: never Lack of Transportation: No Lack of Food: Never True Current Housing: I Do Not Have Housing Concerned About Future Housing: No Difficulty Paying Gas/Electric Bills: No Difficulty Paying for Meds: No Currently Unemployed: No Education: High School Diploma/GED Difficulty w/ Childcare or Family Care: No Gender identity (if verbalized by the patient): Female Spiritual care concerns: No Comments At time of signature, agree with nursing past medical, surgical, social and family history. There is no relevant family history pertinent to the presenting complaint. Exam Const: General: cooperative, healthy appearing, comfortable, no acute distress and well nourished Nutritional Appearance: well nourished Orientation/consciousness: patient oriented x3 Limitations: no limitations HENMT: Head: normal to inspection, normocephalic and atraumatic Ears: hearing grossly normal bilaterally, external ears normal, TM's normal bilaterally, EAC's normal and no periauricular adenopathy Face/Nose/Sinus: Normal external nose present, Abnormal mucous membranes and turbinates present erythematous bilateral and diffuse, normal facial exam, sinuses nontender and face symmetric Face and sinus: normal facial exam, sinuses nontender and face symmetric Mouth: Yes Normal oral and palatal mucosa present, Yes lip normal, Yes tongue normal, Yes Normal salivary glands and ducts present, Yes oropharynx normal and Yes moist mucous membranes Teeth and gingiva: dentition normal Throat: posterior oropharynx normal, tonsils normal and uvula midline Eyes: General: appearance normal, both eyes and all related structures Alignment and Position: alignment normal and position normal Periorbital: periorbital findings normal Eyelids: eyelids normal Pupils: Equal, round and reactive pupils present Neck: Neck: normal visual inspection, full ROM, no lymphadenopathy and supple Chest: Chest palpation & inspection: normal inspection of the chest and normal palpation of entire chest wall Resp: Effort & Inspection: normal respiratory effort and able to speak in complete sentences Auscultation: clear to auscultation bilaterally, no crackles, no rales, no rhonchi and no wheezes Cardio: Rate: regular rate Rhythm: regular rhythm Heart sounds: S1 normal heart sound present and S2 normal heart sound present GI: Inspection: normal to inspection Skin: General skin exam: normal color and no rashes or lesions noted Neuro: General: patient oriented x3 and moves all extremities Cranial nerves: Yes Equal, round and reactive pupils present Speech: normal speech Gait exam (Neuro): Normal gait present Extrem: General: normal to inspection, full ROM and no edema Psych: Appearance: grossly normal and well kempt Mental Status: mental status grossly normal Speech and movement: Normal speech and movement present Affect: normal affect Attitude: cooperative Thought process: Normal thought process present Course Course Emergency Course: Discharge instructions reviewed with patient, as well as provided in writing per nursing staff. The instructions also include specific and strict return/GO TO THE ER as well as f/u information. All questions have been answered, and the patient deny any further questions with discharge and discharge plan. Portions of this record may have been created with voice recognition software Level of Care: Express Care Visit Vital Signs Vital signs: Vital Signs Pulse Rate 80 03/07/24 10:07 Respiratory Rate 16 03/07/24 10:07 Blood Pressure 116/76 03/07/24 10:07 Pulse Oximetry 99 03/07/24 10:07 Oxygen Delivery Room Air 03/07/24 10:07 Pulse Rate 80 03/07/24 10:07 Respiratory Rate 16 03/07/24 10:07 Blood Pressure 116/76 03/07/24 10:07 Pulse Oximetry 99 03/07/24 10:07 Oxygen Delivery Room Air 03/07/24 10:07 Reviewed MDM - URI/Sore Throat MDM Narrative Medical decision making narrative: Pt well hydrated appearing, in no respiratory distress, hemodynamically stable. Recommend supportive care. The patient is stable at time of discharge the clinical impression was discussed and the patient was given the opportunity to ask questions, which were addressed as completely as possible given the information available at present. Anticipatory guidance and return to care precautions were discussed and the importance of primary care follow-up was stressed and encouraged. The patient voiced understanding of the plan, indications to return, and the need for follow-up. Differential diagnosis considered: [place] virus, strep pharyngitis, allergic rhinitis, upper respiratory tract infection, sinusitis, rhinosinusitis, nasopharyngitis. viral pharyngitis, otitis media, otitis externa, otitis effusion, foreign body, cerumen impaction, viral syndrome, and influenza.? Exam findings show no acute concerns or changes; patient is non-toxic appearing and is in no distress.? Patient is appropriate for outpatient treatment and follow-up.? Medical Records Attestation: I reviewed the patient's medical records. Lab Data Attestation: I reviewed the patient's lab results. Labs: Lab Results 03/07/24 Range/Units 10:35 POC Monoscreen Negative (Negative) Discharge Plan Discharge Clinical Impression: Upper respiratory infection Qualifiers: URI type: unspecified viral URI Qualified Code(s): J06.9 - Acute upper respiratory infection, unspecified Patient Disposition: Home, Self-Care Condition: Stable Instructions: Upper Respiratory Infection (ED) Additional Instructions: You were negative for [place] Your symptoms are likely due to a viral illness, which is not treated with antibiotics. Viral symptoms can be present for up to a few weeks. -Alternate Tylenol and Motrin per package directions for fever or pain. -Antihistamine medication such as Benadryl/Zyrtec at night and Claritin/Veronika during the day can help improve symptoms. -Use Flonase twice a day for 5 days then daily to help reduce the inflammation and dry up your sinuses. -You can also use Sudafed behind the pharmacy counter(12 or 24 hour). Be sure to drink plenty of water with these medications at least 8 ounces with every dose and it is important to drink 8 to 10 glasses of water per day. Water is a natural decongestant -Eat and drink things that are easy to swallow, like tea or soup, or popsicles. -Oral rinses such as: Salt water gargles and/or may use topical anesthetic (eg. Chloraseptic spray) or lozenges to relieve dryness or throat pain). -Frequent hand washing or hand electro mechanical solar technician is one of the best ways to prevent spread of infection. -Using a vaporizer or humidifier at night will also help thin secretions and help with coughing up phlegm. -Follow up with primary care provider in 3-5 days if condition is not improving - For new or worsening symptoms go directly to the nearest ER Patient Language: Montenegrin Prescriptions: New fluticasone propionate [Flonase Allergy Relief] 50 mcg/actuation spray,suspension 1 spray intranasal DAILY Qty: 16 0RF Rx Instructions: administer into each nostril Follow-up/Referrals: Blackburn,Zachariah J., MD [Physician] - 3 Days (Establish care) UNKNOWN,DOCTOR [Primary Care Provider] - Stand Alone Forms: Work/School Release IP Time of Disposition: 10:37
[2024-03-07 10:07] VITALS: BP 116/76; PULSE 80; RESP 16; O2SAT 99
[2024-03-07 10:37] LABS: EDMONONEGPOS Negative (Negative)
== END 2024-03-07 10:58 | disposition home or self-care (01) ==
PROVIDERS: Emergency Provider Nurse Practitioner Family
DX: J06.9 Acute upper respiratory infection, unspecified (principal)
CPT/HCPCS: 36416; 86308; 99213; G0463

== ENCOUNTER 2024-04-09 12:54 | Emergency (ER) | payer OTHER, SELFPAY ==
[2024-04-09 13:04] VITALS: BP 111/72; PULSE 74; RESP 16; TEMP 36.2; O2SAT 99
--- NOTE | 2024-04-09 13:34 | ED.URI ---
HPI - URI/Sore Throat General Chief Complaint: Upper Respiratory Infection Stated Complaint: sore throat,nauseated,[place] Time Seen by Provider: 04/09/24 13:10 Source: patient Mode of arrival: ambulatory Limitations: no limitations History of Present Illness HPI Narrative: Jessica is a 23 year old female patient presenting to the clinic today with complaints of sore throat, nausea, nasal congestion, and headache x 2 days. She reports her sore throat started this morning. Her son recently tested positive for influenza A. MD elicited complaint: sore throat, nasal congestion and other (Nausea, headache) Related Data Allergies Allergy/AdvReac Type Severity Reaction Status Date / Time No Known Allergies Allergy Verified 04/09/24 12:57 Review of Systems Review of Systems: Pertinent positives per HPI. Patient denies any fever, chills, rash, headache, visual changes, dizziness,shortness of breath, chest pain, palpitations, vomiting, diarrhea, constipation, abdominal pain, or any urinary issues. PMFSH Past Medical History Medical History Patient denies medical problems Surgical History Surgical History No pertinent past surgical history Family History Family History Other Patient denies significant medical history Social History Social History Smoking status: Never smoker Substance use: never Lack of Transportation: No Lack of Food: Never True Current Housing: I Do Not Have Housing Concerned About Future Housing: No Difficulty Paying Gas/Electric Bills: No Difficulty Paying for Meds: No Currently Unemployed: No Education: High School Diploma/GED Difficulty w/ Childcare or Family Care: No Gender identity (if verbalized by the patient): Female Spiritual care concerns: No Comments At the time of my signature, I reviewed and agree with the nursing past medical, surgical, social, and family history. There is no relevant family history pertinent to the patient complaint. Exam Narrative: General: Well-developed, well nourished, in no apparent distress Head: Normocephalic, atraumatic Eyes: Pupils equally round and reactive to light bilaterally, EOM intact, sclera and conjunctive clear, no discharge, lids normal Ears: TMs intact and clear, ear canals clear, no drainage, grossly hearing normal. Nose: Nares patent, clear nasal discharge, no inflammation, no sinus tenderness. Mouth: Oral pharynx without lesions or masses, good dentition, MMM. Neck: Supple, trachea midline, no enlargement of anterior or posterior cervical nodes, no thyroid masses or goiter palpable. Cardio: Regular rate and rhythm, s1 and s2 normal, no murmur appreciated. Resp: Clear to auscultation bilaterally, no rhonchi, rales, wheezing or rubs Course Course Emergency Course: Portions of this record may have been created with voice recognition software. Level of Care: Express Care Visit Vital Signs Vital signs: Vital Signs Temperature 36.2 C L 04/09/24 13:04 Pulse Rate 74 04/09/24 13:04 Respiratory Rate 16 04/09/24 13:04 Blood Pressure 111/72 04/09/24 13:04 Pulse Oximetry 99 04/09/24 13:04 Oxygen Delivery Room Air 04/09/24 13:04 Temperature 36.2 C L 04/09/24 13:04 Pulse Rate 74 04/09/24 13:04 Respiratory Rate 16 04/09/24 13:04 Blood Pressure 111/72 04/09/24 13:04 Pulse Oximetry 99 04/09/24 13:04 Oxygen Delivery Room Air 04/09/24 13:04 Vital signs reviewed MDM - URI/Sore Throat MDM Narrative Medical decision making narrative: At the time of visit patient is resting comfortably on the exam table. Patient appears to be nontoxic. Labs: Influenza and strep test was performed. Testing was negative. We will send strep for culture. Plan: I suspect patient has URI/pharyngitis. Supportive measures were discussed with the patient and they voiced understanding discharge instructions and agrees to treatment plan. Return precautions reviewed Differential Diagnosis Differential diagnosis: Likely upper respiratory infection, otitis media, sinusitis, viral infection, bronchitis, influenza, pharyngitis and other (COVID) Discharge Plan Discharge Clinical Impression: URI (upper respiratory infection) Qualifiers: URI type: unspecified URI Qualified Code(s): J06.9 - Acute upper respiratory infection, unspecified Pharyngitis Qualifiers: Pharyngitis/tonsillitis etiology: unspecified etiology Qualified Code(s): J02.9 - Acute pharyngitis, unspecified Patient Disposition: Home, Self-Care Condition: Stable Instructions: Antibiotic Form, Pharyngitis (ED), Cold Symptoms (ED) Additional Instructions: Influenza and strep test were all negative in the clinic today. We will send strep for culture. Increase fluids and stay well hydrated Tylenol/motrin for pain/fever Flonase and OTC antihistamines as directed Vicks vapor rub to open sinuses Sinus rinses for congestion Cepacol spray, cough drops, throat lozenges, warm tea with honey/lemon, gargle salt water to soothe throat BRAT diet for diarrhea Clear liquids x 24 hours then advance as tolerated for nausea/vomiting Go to the ED if you develop a worsening in your condition- high fever not controlled by Tylenol or Motrin, dehydration, weakness, lethargy, shortness of breath, or chest pain. Follow up with your PCP in 3-5 days if symptoms persist. Patient Language: Sinhala Follow-up/Referrals: PHYSICIAN NOT ON STAFF,NONSTAFF [Primary Care Provider] - Stand Alone Forms: Work/School Release IP Time of Disposition: 13:59 Quality NIHSS Nursing Documentation ED NIHSS nursing documentation: reviewed/agree
[2024-04-09 14:28] LABS: EDINFLUASCREEN Negative (Negative); EDINFLUBSCREEN Negative (Negative); EDSTREPNEGPOS1 Negative (Negative)
== END 2024-04-09 14:06 | disposition home or self-care (01) ==
PROVIDERS: Emergency Provider Nurse Practitioner Family
DX: J06.9 Acute upper respiratory infection, unspecified (principal); J02.9 Acute pharyngitis, unspecified
CPT/HCPCS: 87081; 87804; 87880; 99213; G0463

== ENCOUNTER 2024-07-31 10:00 | Emergency (ER) | payer OTHER, SELFPAY ==
--- NOTE | 2024-07-31 10:03 | ED.EYEPROB ---
HPI - Eye Problem General Chief complaint: Eye Problems Stated complaint: Right Eyes Irritation Time Seen by Provider: 07/31/24 10:03 Source: patient Mode of arrival: ambulatory Limitations: no limitations History of Present Illness HPI Narrative: Patient is a 23 year old female who presents to the clinic with complaints of redness to bilateral eyes since this morning. She wears contacts and has been noticing more irritation to her eyes recently. She states that she has seasonal allergies, but has not been taking anything over the counter. Denies any vision changes, fevers, or congestion. Related Data Allergies Allergy/AdvReac Type Severity Reaction Status Date / Time No Known Allergies Allergy Verified 07/31/24 10:01 Review of Systems Review of Systems: CONSTITUTIONAL: Denies body aches, fever, chills EYES: Endorses redness to bilateral eyes; No?FB sensation or photophobia.? Denies visual changes, swelling to eyes. ENT: Denies rhinorrhea, congestion, sore throat, or otalgia. CARDIOVASCULAR: Denies chest pain, palpitations RESPIRATORY: Denies cough or dyspnea. GASTROINTESTINAL: Denies abdominal pain, nausea, vomiting, or diarrhea. SKIN: Denies rash, itching, or wounds. MUSCULOSKELETAL: Denies back pain, joint pain, or myalgia. NEUROLOGIC: Denies headache, numbness, tingling, or weakness. All systems reviewed & are unremarkable except as noted in HPI and below PMFSH Past Medical History Medical History Patient denies medical problems Surgical History Surgical History No pertinent past surgical history Family History Family History Other Patient denies significant medical history Social History Social History Smoking status: Never smoker Substance use: never Lack of Transportation: No Lack of Food: Never True Current Housing: I Do Not Have Housing Concerned About Future Housing: No Difficulty Paying Gas/Electric Bills: No Difficulty Paying for Meds: No Currently Unemployed: No Education: High School Diploma/GED Difficulty w/ Childcare or Family Care: No Gender identity (if verbalized by the patient): Female Spiritual care concerns: No Comments At time of signature, I have reviewed and agree with nursing past medical, surgical, social and family history unless otherwise noted. Please see nursing chart for further information. There is no relevant family history pertinent to the presenting complaint. Exam Narrative: GENERAL: Well-appearing HEAD: Normocephalic, atraumatic. EYES: ?Bilateral eye conjunctival injection without eye lid swelling or redness.? EOMI. ?Lid eversion with no FB. ENT: Mucous membranes pink and moist. ?No rhinorrhea. ?TMs normal bilaterally. ?Throat normal. Uvula midline. CHEST: ?Clear to auscultation. HEART: Regular rate and rhythm. ABDOMEN: Soft, nontender, nondistended SKIN: Warm, dry, no rash. ?Normal skin turgor. NEURO: No focal deficits. Alert and oriented x3 PSYCH: ?Normal affect. Course Course Level of Care: Express Care Visit Vital Signs Vital signs: Reviewed MDM - Eye Problem MDM Narrative Medical decision making narrative: Discussed physical exam findings.Prescription for Polymyxin eye drops for conjunctivitis. Advised supportive measures and signs/symptoms to go to the ER. Pt is appropriate for outpt treatment and follow up. Differential Diagnosis Differential diagnosis: Likely corneal abrasion and conjunctivitis Critical Care Time Critical Care Time Critical Care Time: No Discharge Plan Discharge Clinical Impression: Acute bacterial conjunctivitis of both eyes Patient Disposition: Home Condition: Stable Instructions: Antibiotic Form, Conjunctivitis (ED) Additional Instructions: Avoid touching or rubbing your eye. Use over the counter lubricating eye drops as needed for irritation Use a warm or cool washcloth on your eye for comfort Use eyedrops as directed - you are contagious for 24 hours after starting the antibiotic Practice good handwashing and hygiene to prevent spread of infection Do not wear the contact lenses. Use a new pair after the infection is resolved. Use new makeup, lashes etc. You may take Tylenol or ibuprofen for pain Be sure to follow up with your Primary Care Physician. For any persistent or worsening symptoms please go to ER. Patient Language: Mongolian Prescriptions: New polymyxin B sulf-trimethoprim 10,000 unit- 1 mg/mL drops 1 drp EACH EYE Q3H 7 Days Qty: 10 0RF Rx Instructions: while awake; do not exceed 6 doses in 24 hours fluticasone propionate [Flonase Allergy Relief] 50 mcg/actuation spray,suspension 1 spray intranasal BID Qty: 16 0RF Rx Instructions: administer into each nostril Follow-up/Referrals: UNKNOWN,DOCTOR [Non-Staff] - Stand Alone Forms: Work/School Release IP Time of Disposition: 10:20
[2024-07-31 10:08] VITALS: BP 115/83; PULSE 85; RESP 12; TEMP 36.5; O2SAT 99
== END 2024-07-31 10:23 | disposition home or self-care (01) ==
DX: H10.33 Unspecified acute conjunctivitis, bilateral (principal)
CPT/HCPCS: 99213; G0463

== ENCOUNTER 2024-11-14 11:01 | Emergency (ER) | payer OTHER, SELFPAY ==
[2024-11-14 11:20] VITALS: BP 115/74; PULSE 73; RESP 16; TEMP 36.6; O2SAT 98
--- NOTE | 2024-11-14 11:32 | ED.GENADULT ---
HPI - General Adult General Chief complaint: Upper Respiratory Infection Stated complaint: Sore Throat Time Seen by Provider: 11/14/24 11:33 Source: patient, RN notes reviewed and old records reviewed Mode of arrival: ambulatory Limitations: no limitations History of Present Illness HPI narrative: 24-year-old female presents to the [facility] with a sore throat since 1 day. Also reports that she has had left-sided eye blurriness and headache since applying a scopolamine patch on Sunday. Denies any other symptoms. Scopolamine patches applied to left posterior ear. Related Data Home Medications ?Medication ?Instructions ?Recorded ?Confirmed ?Last Taken ?Type progesterone micronized 100 mg mg 11/14/24 Unknown History capsule progesterone micronized 200 mg mg 11/14/24 Unknown History capsule scopolamine base 1 mg over 3 days 11/14/24 Unknown History transdermal patch Allergies Allergy/AdvReac Type Severity Reaction Status Date / Time No Known Allergies Allergy Verified 11/14/24 11:27 Review of Systems Review of Systems: All systems reviewed & are unremarkable except as noted in HPI and below Constitutional: Constitutional: Reports no additional constitutional complaints ENT: Reports as per HPI Cardiovascular: Cardiovascular: Reports no additional cardiovascular complaints, Denies chest pain and Denies dyspnea Respiratory: Respiratory: Reports no additional respiratory complaints, Denies chest congestion, Denies cough and Denies dyspnea Musculoskeletal: Musculoskeletal: Reports no additional musculoskeletal complaints Integumentary/Breasts: Skin/Breast: Reports system reviewed and no additional complaints, except as docu PMFSH Past Medical History Medical History Patient denies medical problems Surgical History Surgical History No pertinent past surgical history Family History Family History Other Patient denies significant medical history Social History Social History Smoking status: Never smoker Substance use: never Lack of Transportation: No Lack of Food: Never True Current Housing: I Do Not Have Housing Concerned About Future Housing: No Difficulty Paying Gas/Electric Bills: No Difficulty Paying for Meds: No Currently Unemployed: No Education: High School Diploma/GED Difficulty w/ Childcare or Family Care: No Gender identity (if verbalized by the patient): Female Spiritual care concerns: No Comments At the time of my signature, I reviewed and agree with the nursing past medical, surgical, social, and family history. There is no relevant family history pertinent to the patient complaint. Exam Const: General: cooperative, healthy appearing, comfortable, no acute distress, well developed, alert and well nourished Nutritional Appearance: well nourished Orientation/consciousness: patient oriented x3 Limitations: no limitations HENMT: Head: normal to inspection Ears: hearing grossly normal bilaterally, external ears normal, TM's normal bilaterally, EAC's normal, mastoids normal and no periauricular adenopathy Mouth: Yes Normal oral and palatal mucosa present, Yes lip normal, Yes tongue normal and Yes moist mucous membranes Throat: posterior oropharynx normal, uvula midline and no uvular edema Eyes: General: appearance normal, both eyes and all related structures Alignment and Position: alignment normal Eyelids: eyelids normal Conjunctivae: conjunctivae normal Sclera: sclerae normal Pupils: Equal, round and reactive pupils present Neck: Neck: normal visual inspection, full ROM, no lymphadenopathy and no meningeal signs Chest: Chest palpation & inspection: normal inspection of the chest Resp: Effort & Inspection: normal respiratory effort and able to speak in complete sentences Auscultation: clear to auscultation bilaterally, no crackles, no rales, no rhonchi and no wheezes Cardio: Rate: regular rate Skin: General skin exam: normal color and no rashes or lesions noted Neuro: General: patient oriented x3, gait normal, moves all extremities and no meningeal signs Cognition (Neuro): normal cognition Speech: normal speech Gait exam (Neuro): Normal gait present Extrem: General: normal to inspection, full ROM, capillary refill normal and normal gait Psych: Appearance: grossly normal and well kempt Mental Status: mental status grossly normal Speech and movement: Normal speech and movement present and Clear speech present Affect: normal affect Attitude: cooperative Course Course Level of Care: [facility] Care Visit Vital Signs Vital signs: Vital Signs Temperature 97.9 F 11/14/24 11:20 Pulse Rate 73 11/14/24 11:20 Respiratory Rate 16 11/14/24 11:20 Blood Pressure 115/74 11/14/24 11:20 Pulse Oximetry 98 11/14/24 11:20 Oxygen Delivery Room Air 11/14/24 11:20 Temperature 97.9 F 11/14/24 11:20 Pulse Rate 73 11/14/24 11:20 Respiratory Rate 16 11/14/24 11:20 Blood Pressure 115/74 11/14/24 11:20 Pulse Oximetry 98 11/14/24 11:20 Oxygen Delivery Room Air 11/14/24 11:20 Reviewed Medical Decision Making MDM Narrative Medical decision making narrative: Patient sitting in exam room. Patient is nontoxic, vitals stable. Patient presents with 2 different complaints sore throat since yesterday, strep test negative, will culture. Patient reports left eye blurriness, headaches since of placing a scopolamine patch on. Discussed for her to remove it, states that she wants to talk to the person that prescribed at 1st. Discussed that after she removes it if symptoms persist that she should be evaluated in the emergency room which she verbalized understanding. Discharge instructions reviewed with patient, as well as provided in writing per nursing staff. The instructions also include specific and strict return/GO TO THE ER as well as f/u information. All questions have been answered, and the patient deny any further questions with discharge and discharge plan. Some parts of this dictation were generated by voice recognition software and may contain typographical and/or grammatical inaccuracies. Medical Records Medical records reviewed: Yes I reviewed the external patient's medical records. Vital Signs Vital Signs: Vital Signs Temperature 97.9 F 11/14/24 11:20 Pulse Rate 73 11/14/24 11:20 Respiratory Rate 16 11/14/24 11:20 Blood Pressure 115/74 11/14/24 11:20 Pulse Oximetry 98 11/14/24 11:20 Oxygen Delivery Room Air 11/14/24 11:20 Temperature 97.9 F 11/14/24 11:20 Pulse Rate 73 11/14/24 11:20 Respiratory Rate 16 11/14/24 11:20 Blood Pressure 115/74 11/14/24 11:20 Pulse Oximetry 98 11/14/24 11:20 Oxygen Delivery Room Air 11/14/24 11:20 Reviewed Lab Data Lab results reviewed: Yes I reviewed the patient's lab results. Labs: Lab Results 11/14/24 Range/Units 11:25 POC Grp A Strep Screen Negative (Negative) Reviewed Critical Care Time Critical Care Time Critical Care Time: No Discharge Plan Discharge Clinical Impression: Dizziness, Pharyngitis Patient Disposition: Home Condition: Stable Instructions: Antibiotic Form, Pharyngitis (ED) Additional Instructions: Your rapid strep swab was negative today at [facility]. A throat culture will be sent to the laboratory for further testing. If the test is positive, you will receive a phone call within 48 hours and an appropriate antibiotic will be initiated at that time. It is very important to treat your symptoms. Drink plenty of water, Gatorade, Pedialyte, ice pops or Jell-O. -Alternate Tylenol and Motrin per package directions for fever or pain. You can alternate every 4 hours -Antihistamine medication such as Zyrtec/Claritin/Veronika during the day can help improve symptoms. -doing daily nasal irrigations can help relieve pressure your sinuses. Things like a Neti pot -Use Flonase twice a day for 5 days then daily to help reduce the inflammation and dry up your sinuses. -You can also use Mucinex. Be sure to drink plenty of water with this medication at least 8 ounces with every dose and it is important to drink 8 to 10 glasses of water per day. Water is a natural decongestant -Eat and drink things that are easy to swallow, like tea or soup, or popsicles. -Oral rinses such as: Salt water gargles and/or may use topical anesthetic (eg. Chloraseptic spray) or lozenges to relieve dryness or throat pain). -Frequent hand washing or hand thread machine operator is one of the best ways to prevent spread of infection. -Using a vaporizer or humidifier at night will also help thin secretions and help with coughing up phlegm. -Follow up with primary care provider in 7-10 days if condition is not improving - For new or worsening symptoms go directly to the nearest ER Patient Language: E[place] Prescriptions: No Action fluticasone propionate [Flonase Allergy Relief] 50 mcg/actuation spray,suspension 1 spray intranasal BID Qty: 16 0RF Rx Instructions: administer into each nostril progesterone micronized 200 mg capsule scopolamine base 1 mg over 3 days patch 3 day progesterone micronized 100 mg capsule Follow-up/Referrals: PHYSICIAN,BALANCE WHEEL FACER [Primary Care Provider, Internal Medicine] Stand Alone Forms: Work/School Release IP Time of Disposition: 11:45
[2024-11-14 11:44] LABS: EDSTREPNEGPOS1 Negative (Negative)
== END 2024-11-14 11:49 | disposition home or self-care (01) ==
PROVIDERS: Emergency Provider Nurse Practitioner
DX: J02.9 Acute pharyngitis, unspecified (principal); R42 Dizziness and giddiness
CPT/HCPCS: 87081; 87880; 99213; G0463